=== PATIENT | male | born 1955 | race Caucasian/White ===

== ENCOUNTER → 2018-08-06 | Outpatient (CLI) | payer OTHER ==
[2018-08-06 16:33] LABS: ABG BASE EXCESS 3.3 MMOL/L (-2.5-2.5); ABG OXYGEN SATURATION 96 % (94-100); ABG PCO2 41 MMHG (35-45); ABG PH 7.43 (7.37-7.43); ABG PO2 68 MMHG (79-93); ABG TCO2 28.7 MMOL/L (21.0-31.0)
[2018-08-06 16:34] LABS: ALLENS TEST YES-POS; INSPIRED O2 RA; PATIENT TEMP 97.8; VENTILATOR NO
== END ==
LOC: RT 16:03
PROVIDERS: ATTEND Nurse Practitioner Family
DX: Z02.89 Encounter for other administrative examinations (principal); J44.9 Chronic obstructive pulmonary disease, unspecified
CPT/HCPCS: 36600; 82805

== ENCOUNTER 2021-04-16 16:03 | Emergency (ER) | payer MEDICARE, MEDICAID ==
[~2021-04-16] VITALS: Ht 182.8 cm; Wt 72.7 kg
--- NOTE | 2021-04-16 17:05 | ED General ---
General Chief Complaint: General Problems/Pain Stated Complaint: HX COPD/BILAT LEG SWELLING Nursing Triage Note: AMB TO ROOM FROM [facility].PMH OF COPD PATIENT WEARING 02 AT 3 L PER NC . PATIENT REPORTS THAT WAS IN [facility] IN [place]. HAS BEEN WITH LASIX FOR X1 DAY AND LEG HAVE BEEN SWOLLEN FOR 2 DAYS SENT BY [facility] FOR EVAL. Source of Information: Patient Exam Limitations: No Limitations (CLARISSE QUINONEZ STUDENT) History of Present Illness Date Seen by Provider: Apr 16, 2021 Time Seen by Provider: 16:26 Initial Comments This is [place] a 66 yo male that presented to the ED via private vehicle after being referred from [facility]. He was at a follow-up appointment when he told to consult with cardiology due to "fluid build-up". He has a history of COPD. Pt states he has SOB that is his baseline. He complains of bilateral pitting edema making it difficult to walk. He had a hospital stay at [place] in January for possible DVT/PE and was prescribed new medications for COPD, blood thinner, and Lasiks. He has been out of the Lasiks for about 2 weeks now and states that he was unable to get more prescribed. Pt is on constant supplemental O2 of 3L and was currently at 98%. The Pt denies having a coater operator or ever having an ECHO. His last imaging was at [place] during his stay. Timing/Duration: Constant, Other (2 weeks) Severity: Mild Modifying Factors: improves with Medication; worse with Movement Associated Systoms: Shortness of Air (CLARISSE QUINONEZ STUDENT) Review of Systems Review of Systems Constitutional: no symptoms reported EENTM: no symptoms reported Respiratory: see HPI, short of breath Cardiovascular: see HPI, edema Gastrointestinal: no symptoms reported Genitourinary: no symptoms reported Musculoskeletal: no symptoms reported Skin: see HPI, change in color, dryness, other (bilateral pitting edema) Psychiatric/Neurological: No Symptoms Reported Hematologic/Lymphatic: No Symptoms Reported Immunological/Allergic: no symptoms reported (CLARISSE QUINONEZ STUDENT) Past Jkbmugb-Kbsgdt-Iqtqpl Hx Patient Social History Tobacco Use?: Yes Smoking Status: Former Smoker Substance use?: No Alcohol Use?: Yes Alcohol Frequency: Several times a month (CLARISSE QUINONEZ STUDENT) Past Medical History Respiratory: Yes Pulmonary Embolism, COPD Deep Vein Thrombosis (CLARISSE QUINONEZ STUDENT) Physical Exam Vital Signs Vital Signs - First Documented 04/16/21 16:22 Temp 36.8 Pulse 100 Resp 18 B/P (MAP) 126/90 (102) Pulse Ox 93 O2 Delivery Nasal Cannula (JANET SIGALA MD) Vital Signs Capillary Refill : Less Than 3 Seconds (CLARISSE QUINONEZ MED STUDENT) Height, Weight, BMI Height: '" Weight: lbs. oz. kg; 21.00 BMI Method: General Appearance: No Apparent Distress, WD/WN Eyes: Bilateral Eye Normal Inspection, Bilateral Eye PERRL HEENT: PERRL/EOMI Neck: Normal Inspection, Non Tender, Supple Respiratory: Chest Non Tender, No Accessory Muscle Use, No Respiratory Distress, Crackles, Decreased Breath Sounds Cardiovascular: Regular Rate, Rhythm, No Gallop, No Murmur, Normal Peripheral Pulses Gastrointestinal: Normal Bowel Sounds, Non Tender, Soft Rectal: Deferred Extremity: Non Tender, No Calf Tenderness, Pedal Edema, Swelling Neurologic/Psychiatric: Alert, Oriented x3, No Motor/Sensory Deficits, Normal Mood/Affect Skin: Normal Color, Warm/Dry (CLARISSE QUINONEZ STUDENT) Focused Exam Respiratory: Chest Non Tender, No Accessory Muscle Use, No Respiratory Distress, Crackles, Decreased Breath Sounds Cardiovascular: Regular Rate, Rhythm, No Gallop, No Murmur, Normal Peripheral Pulses Skin: normal color, warm/dry (CLARISSE QUINONEZ STUDENT) Progress/Results/Core Measures Suspected Sepsis SIRS Temperature: Pulse: 100 Respiratory Rate: 18 Blood Pressure 126 /90 Mean: 102 (CLARISSE QUINONEZ STUDENT) Results/Orders Lab Results Laboratory Tests Test 04/16/21 17:32 Range/Units White Blood Count 6.9 4.3-11.0 10^3/uL Red Blood Count 4.28 L 4.30-5.52 10^6/uL Hemoglobin 13.7 13.3-17.7 g/dL Hematocrit 43 40-54 % Mean Corpuscular Volume 100 H 80-99 fL Mean Corpuscular Hemoglobin 32 25-34 pg Mean Corpuscular Hemoglobin Concent 32 32-36 g/dL Red Cell Distribution Width 15.3 H 10.0-14.5 % Platelet Count 181 130-400 10^3/uL Mean Platelet Volume 11.6 9.0-12.2 fL Immature Granulocyte % (Auto) 0 % Neutrophils (%) (Auto) 65 42-75 % Lymphocytes (%) (Auto) 19 12-44 % Monocytes (%) (Auto) 14 H 0-12 % Eosinophils (%) (Auto) 1 0-10 % Basophils (%) (Auto) 1 0-10 % Neutrophils # (Auto) 4.5 1.8-7.8 10^3/uL Lymphocytes # (Auto) 1.3 1.0-4.0 10^3/uL Monocytes # (Auto) 1.0 0.0-1.0 10^3/uL Eosinophils # (Auto) 0.1 0.0-0.3 10^3/uL Basophils # (Auto) 0.1 0.0-0.1 10^3/uL Immature Granulocyte # (Auto) 0.0 0.0-0.1 10^3/uL Sodium Level 137 135-145 MMOL/L Potassium Level 4.7 3.6-5.0 MMOL/L Chloride Level 101 98-107 MMOL/L Carbon Dioxide Level 28 21-32 MMOL/L Anion Gap 8 5-14 MMOL/L Blood Urea Nitrogen 12 7-18 MG/DL Creatinine 1.00 0.60-1.30 MG/DL Estimat Glomerular Filtration Rate 75 BUN/Creatinine Ratio 12 Glucose Level 96 70-105 MG/DL Calcium Level 9.5 8.5-10.1 MG/DL B-Type Natriuretic Peptide 1246.9 H <100.0 PG/ML (JANET SIGALA MD) My Orders Orders - JANET SIGALA MD Basic Metabolic Panel (04/16/21 17:01) BNP (04/16/21 17:01) Cbc With Automated Diff (04/16/21 17:01) Ed Iv/Invasive Line Start (04/16/21 17:01) Chest 1 View, Ap/Pa Only (04/16/21 17:01) (JANET SIGALA MD) Vital Signs/I&O 04/16/21 16:22 Temp 36.8 Pulse 100 Resp 18 B/P (MAP) 126/90 (102) Pulse Ox 93 O2 Delivery Nasal Cannula (JANET SIGALA MD) Vital Signs/I&O Capillary Refill : Less Than 3 Seconds (CLARISSE QUINONEZ MED STUDENT) Blood Pressure Mean: 102 Departure Impression Primary Impression: Lower extremity edema Additional Impressions: Hypertension Qualified Codes: I10 - Essential (primary) hypertension Fluid overload Qualified Codes: E87.70 - Fluid overload, unspecified Disposition: 01 HOME, SELF-CARE Condition: Stable Departure-Patient Inst. Decision time for Depature: 18:31 (JANET SIGALA MD) Referrals: [facility] [place] Primary Care Physician PEGGY GIORDANO JR, MD Patient Instructions: Heart Failure ED, High Blood Pressure in Adults Add. Discharge Instructions: Call Dr. Giordano office as soon as possible to schedule a follow-up appointment. See contact information below Contact [facility] to request a transfer records to Dr. Giordano Start your medications as prescribed. After starting these 3 medications, you should have your blood work checked again in 1 to 2 weeks. Please do this with either Dr. Giordano or your primary care provider. Avoid excessive or extra salt in your diet. Call with questions or concerns. Return to the ER if you have worsening symptoms. All discharge instructions reviewed with patient and/or family. Voiced understanding. Scripts Potassium Chloride (Potassium Chloride) 10 Meq Capsule.er 10 MEQ PO DAILY, #30 CAP Prov: JANET SIGALA MD 04/16/21 Lisinopril (Lisinopril) 5 Mg Tablet 5 MG PO DAILY, #30 TAB Prov: JANET SIGALA MD 04/16/21 Furosemide (Furosemide) 20 Mg Tablet 20 MG PO DAILY, #30 TAB Prov: JANET SIGALA MD 04/16/21 Copy Copies To 1: JANY MORATAYA DO Copies To 2: PEGGY GIORDANO JR, MD [place], DYLAN MED STUDENT Apr 16, 2021 17:05 JANET SIGALA MD Apr 16, 2021 18:36
[2021-04-16 17:39] LABS: BASOPHILS # (AUTO) 0.1 10^3/uL (0.0-0.1); BASOPHILS % (AUTO) 1 % (0-10); EOSINOPHILS # (AUTO) 0.1 10^3/uL (0.0-0.3); EOSINOPHILS % (AUTO) 1 % (0-10); HEMATOCRIT 43 % (40-54); HEMOGLOBIN 13.7 g/dL (13.3-17.7); LYMPHOCYTES # (AUTO) 1.3 10^3/uL (1.0-4.0); LYMPHOCYTES % (AUTO) 19 % (12-44); MEAN CORPUSCULAR HEMOGLOBIN 32 pg (25-34); MEAN CORPUSCULAR HGB CONC 32 g/dL (32-36); MEAN CORPUSCULAR VOLUME 100 fL (80-99); MEAN PLATELET VOLUME 11.6 fL (9.0-12.2); MONOCYTES % (AUTO) 14 % (0-12); NEUTROPHILS # (AUTO) 4.5 10^3/uL (1.8-7.8); NEUTROPHILS % (AUTO) 65 % (42-75); PLATELET COUNT 181 10^3/uL (130-400); WHITE BLOOD COUNT 6.9 10^3/uL (4.3-11.0)
[2021-04-16 17:49] LABS: POTASSIUM 4.7 MMOL/L (3.6-5.0)
[2021-04-16 17:50] LABS: CALCIUM 9.5 MG/DL (8.5-10.1)
--- NOTE | 2021-04-16 18:00 | Diagnostic Imaging Report ---
EXAMINATION: Chest radiograph, portable AP view. DATE: 04/16/2021 5:36 PM INDICATION: 66-year-old male, shortness of breath. COMPARISON: None. FINDINGS: Heart size and mediastinal contours are unremarkable. There is no identified pneumothorax. There is blunting of the right lateral costophrenic angle. There is no otherwise identified focal airspace consolidation. IMPRESSION: 1. Blunting of the right lateral costophrenic angle which may reflect small effusion, atelectasis, and/or infiltrate. Dictated by: Dictated on workstation # [id number]
[2021-04-16] MEDS ORDERED: LISI-729 PO (18:35)
[2021-04-16] MEDS ORDERED: FURO20TA4 PO (18:35)
[2021-04-16] MEDS ORDERED: POTA10CA43 PO (18:35)
[2021-04-16 18:48] VITALS: BP 163/103
== END 2021-04-16 18:51 | disposition home or self-care (01) ==
LOC: EDUNIT# 16:03 → ER 16:05
DX: R60.0 Localized edema (principal); I10 Essential (primary) hypertension; E87.70 Fluid overload, unspecified; J44.9 Chronic obstructive pulmonary disease, unspecified; Z87.891 Personal history of nicotine dependence
CPT/HCPCS: 36415; 71045; 80048; 83880; 85025

== ENCOUNTER → 2021-05-21 | Outpatient (CLI) | payer MEDICARE, MEDICAID ==
[~2021-05-21] MED LIST: FURO20TA4 PO; LISI5TAB20 PO; POTA10CA43 PO
== END ==
LOC: CARD 13:00
PROVIDERS: ATTEND Internal Medicine Cardiovascular Disease
DX: I08.1 Rheumatic disorders of both mitral and tricuspid valves (principal); I27.20 Pulmonary hypertension, unspecified
CPT/HCPCS: 93306

== ENCOUNTER 2022-08-05 16:09 | Inpatient (IN) | payer MEDICARE, MEDICAID ==
[~2022-08-05] VITALS: Ht 180 cm; Wt 69.8 kg
[~2022-08-05 16:09] MED LIST changes: -POTA10CA43 PO; +POTA10CA44 PO
[2022-08-05] MEDS ORDERED: LISI5TAB20 PO (16:27)
[2022-08-05] MEDS ORDERED: ATOR20TA66 PO (16:27)
--- NOTE | 2022-08-05 16:31 | ED Respiratory ---
General Chief Complaint: Respiratory Problems Stated Complaint: SOB Nursing Triage Note: PT STATES SOB FOR ABOUT 2 WKS, HAS NOT BEEN ON HIS LASIX FOR ABOUT THE SAME TIME, OTHER MEDS HE HAS ACCIDENTALLY BEEN TAKING DOUBLE THE DOSE Source: patient, old records Exam Limitations: no limitations History of Present Illness Date Seen by Provider: Aug 05, 2022 Time Seen by Provider: 16:13 Initial Comments 67yoM with PMH of chronic hypoxic respiratory failure on anywhere between 3 to 5 L oxygen at home, COPD, hypertension, hyperlipidemia, questionable CHF coming in due to shortness of breath and increasing edema in his lower extremities going up past his abdomen. He states he was started on Lasix, it was not refilled, and he has had increasing water weight over the past month. He has never followed up with a director internal audit. The Lasix was prescribed in the emergency department initially. He is otherwise denying any fever, worsening cough, abdominal pain, nausea, vomiting, focal weakness or numbness, or any other concerns Allergies and Home Medications Allergies Coded Allergies: No Known Drug Allergies (Unverified , 08/05/22) Patient Home Medication List Home Medication List Reviewed: Yes Atorvastatin Calcium (Atorvastatin Calcium) 20 Mg Tablet, 20 MG PO, (Reported) Entered as Reported by: BOB OJEDA on 08/05/221626 Last Action: New Order Furosemide (Furosemide) 20 Mg Tablet, 20 MG PO DAILY Prescribed by: JANET COY on 04/16/211834 Lisinopril (Lisinopril) 5 Mg Tablet, 5 MG PO DAILY Prescribed by: JANET COY on 04/16/211834 Lisinopril (Lisinopril) 5 Mg Tablet, 5 MG PO DAILY, (Reported) Entered as Reported by: BOB OJEDA on 08/05/221626 Last Action: New Order Potassium Chloride (Potassium Chloride) 10 Meq Capsule.er, 10 MEQ PO DAILY Prescribed by: JANET COY on 04/16/211834 Review of Systems Review of Systems Constitutional: No fever EENTM: no symptoms reported Respiratory: see HPI Cardiovascular: chest pain (when walking long distances, better with rest) Gastrointestinal: no symptoms reported Genitourinary: no symptoms reported Musculoskeletal: see HPI Skin: no symptoms reported Psychiatric/Neurological: No Symptoms Reported Hematologic/Lymphatic: No Symptoms Reported Immunological/Allergic: no symptoms reported All Other Systems Reviewed Negative Unless Noted: Yes Past Clftvqv-Utubmc-Mxtaph Hx Patient Social History Tobacco Use?: Yes Tobacco type used: Cigarettes Past Medical History Surgeries: No Respiratory: Yes Pulmonary Embolism, COPD Deep Vein Thrombosis Physical Exam Vital Signs - First Documented 08/05/22 16:12 Temp 35.9 Pulse 114 Resp 24 B/P (MAP) 121/62 (81) Pulse Ox 98 O2 Delivery OxyMask O2 Flow Rate 10.00 Capillary Refill : Height: '" Weight: lbs. oz. kg; 20.00 BMI Method: General Appearance: WD/WN, mild distress Eyes: Bilateral Eye Normal Inspection HEENT: PERRL/EOMI, normal ENT inspection, pharynx normal Neck: non-tender, full range of motion, supple, normal inspection Respiratory: chest non-tender, accessory muscle use, crackles Cardiovascular: regular rate, rhythm, no murmur Gastrointestinal: normal bowel sounds, non tender, soft; No distended, No guarding, No rebound Extremities: normal range of motion, non-tender, no calf tenderness, normal capillary refill, pedal edema Neurologic/Psychiatric: no motor/sensory deficits, alert, normal mood/affect Skin: normal color, warm/dry Lymphatic: no adenopathy Progress/Results/Core Measures Suspected Sepsis SIRS Temperature: Pulse: 114 Respiratory Rate: 24 Laboratory Tests 08/05/22 16:25: White Blood Count 7.7 Blood Pressure 121 /62 Mean: 81 Laboratory Tests 08/05/22 16:25: Creatinine 1.16, INR Comment 1.1, Platelet Count 142, Total Bilirubin 0.9 Results/Orders Lab Results Laboratory Tests Test 08/05/22 16:25 Range/Units White Blood Count 7.7 4.3-11.0 10^3/uL Red Blood Count 4.75 4.30-5.52 10^6/uL Hemoglobin 14.8 13.3-17.7 g/dL Hematocrit 46 40-54 % Mean Corpuscular Volume 98 80-99 fL Mean Corpuscular Hemoglobin 31 25-34 pg Mean Corpuscular Hemoglobin Concent 32 32-36 g/dL Red Cell Distribution Width 15.0 H 10.0-14.5 % Platelet Count 142 130-400 10^3/uL Mean Platelet Volume 12.4 H 9.0-12.2 fL Immature Granulocyte % (Auto) 0 % Neutrophils (%) (Auto) 67 42-75 % Lymphocytes (%) (Auto) 18 12-44 % Monocytes (%) (Auto) 14 H 0-12 % Eosinophils (%) (Auto) 1 0-10 % Basophils (%) (Auto) 1 0-10 % Neutrophils # (Auto) 5.1 1.8-7.8 10^3/uL Lymphocytes # (Auto) 1.4 1.0-4.0 10^3/uL Monocytes # (Auto) 1.1 H 0.0-1.0 10^3/uL Eosinophils # (Auto) 0.1 0.0-0.3 10^3/uL Basophils # (Auto) 0.1 0.0-0.1 10^3/uL Immature Granulocyte # (Auto) 0.0 0.0-0.1 10^3/uL Prothrombin Time 14.8 H 12.2-14.7 SEC INR Comment 1.1 0.8-1.4 Activated Partial Thromboplast Time 29 24-35 SEC Sodium Level 138 135-145 MMOL/L Potassium Level 4.6 3.6-5.0 MMOL/L Chloride Level 100 98-107 MMOL/L Carbon Dioxide Level 28 21-32 MMOL/L Anion Gap 10 5-14 MMOL/L Blood Urea Nitrogen 28 H 7-18 MG/DL Creatinine 1.16 0.60-1.30 MG/DL Estimat Glomerular Filtration Rate 69 BUN/Creatinine Ratio 24 Glucose Level 86 70-105 MG/DL Calcium Level 9.7 8.5-10.1 MG/DL Corrected Calcium 9.9 8.5-10.1 MG/DL Magnesium Level 1.7 1.6-2.4 MG/DL Total Bilirubin 0.9 0.1-1.0 MG/DL Aspartate Amino Transf (AST/SGOT) 47 H 5-34 U/L Alanine Aminotransferase (ALT/SGPT) 34 0-55 U/L Alkaline Phosphatase 211 H 40-136 U/L Troponin I 0.057 H <0.028 NG/ML B-Type Natriuretic Peptide 2716.3 H <100.0 PG/ML Total Protein 7.1 6.4-8.2 GM/DL Albumin 3.8 3.2-4.5 GM/DL Lipase 50 8-78 U/L My Orders Orders - YOVANY HYATT MD Cbc With Automated Diff (08/05/22 16:33) Magnesium (08/05/22 16:33) Chest 1 View, Ap/Pa Only (08/05/22 16:33) Ekg Tracing (08/05/22 16:33) Comprehensive Metabolic Panel (08/05/22 16:33) Protime With Inr (08/05/22 16:33) Partial Thromboplastin Time (08/05/22 16:33) O2 (08/05/22 16:33) Monitor-Rhythm Ecg Trace Only (08/05/22 16:33) Ed Iv/Invasive Line Start (08/05/22 16:33) Lipase (08/05/22 16:33) Bnp Hall (08/05/22 16:33) Troponin I Hall (08/05/22 16:33) Aspirin Chewable Tablet (Baby Aspirin Ch (08/05/22 16:45) Albuterol/Ipra Inhalation Soln (Duoneb I (08/05/22 16:45) Furosemide Injection (Lasix Injection) (08/05/22 16:45) Medications Given in ED Current Medications Medications Dose Ordered Sig/Kirby Route Start Time Stop Time Status Last Admin Dose Admin Albuterol/ Ipratropium 3 ml ONCE ONCE INH 08/05/22 16:45 08/05/22 16:46 DC 08/05/22 16:42 3 ML Aspirin 324 mg ONCE ONCE PO 08/05/22 16:45 08/05/22 16:46 DC 08/05/22 16:50 324 MG Furosemide 40 mg ONCE ONCE IVP 08/05/22 16:45 08/05/22 16:46 DC 08/05/22 16:50 40 MG Vital Signs/I&O 08/05/22 08/05/22 08/05/22 08/05/22 16:12 16:15 16:15 16:45 Temp 35.9 Pulse 114 Resp 24 B/P (MAP) 121/62 (81) Pulse Ox 98 96 100 O2 Delivery OxyMask Nasal Cannula Nasal Cannula OxyMask O2 Flow Rate 10.00 4.00 4.00 12.00 Capillary Refill : Blood Pressure Mean: 81 Progress Note : Progress Note 67-year-old male with above history coming in shortness of breath and chest pain. ABCs were intact and vitals were stable on presentation on his baseline oxygen. He is breathing hard with lung sounds with crackles. Given a DuoNeb given his history of COPD to see if that can help with his work of breathing. Significant edema and with the crackles, patient was given IV Lasix 40 mg. Troponin slightly elevated which is a type II NSTEMI in the setting of his heart failure. He was given aspirin. BNP elevated, chest x-ray with cardiomegaly but no obvious infiltrate on my interpretation. I will contact the director internal audit for consultation and then I will contact Dr. Sawant for admission to the cardiac stepdown unit. ECG Initial ECG Impression Date: Aug 05, 2022 Initial ECG Impression Time: 16:51 Initial ECG Rate: 99 Initial ECG Rhythm: Normal Sinus Comment Narrow QRS, borderline right axis deviation, subtle ST depression in the inferior leads but no STEMI Diagnostic Imaging Diagonstic Imaging: Xray (chest) Comments NAME: CHINTAN [facility]BERTS [facility] REC#: [id number] PT STATUS: REG ER : 1955 PHYSICIAN: YOVANY HYATT MD ADMIT DATE: 08/05/22/ER Draft Date of Exam:08/05/22 CHEST 1 VIEW, AP/PA ONLY INDICATION: Chest pain. TECHNIQUE/COMPARISON: A frontal chest was obtained at 4:35 PM and compared to 04/16/2021. FINDINGS: There is cardiomegaly. There is central vascular congestion. There is hyperinflation, compatible with COPD, with biapical bullous disease. There is no consolidation, pneumothorax, or pleural fluid. IMPRESSION: Cardiomegaly and central vascular congestion without brandon edema. COPD changes with biapical bullous disease without focal infiltrate. Dictated on workstation # [id number] Dict: 08/05/22 1651 Trans: 08/05/22 1654 [id number] Interpreted by: CHINTAN BASS MD Electronically signed by: Departure Impression Primary Impression: CHF exacerbation Qualified Codes: I50.9 - Heart failure, unspecified Additional Impressions: Chronic respiratory failure Qualified Codes: J96.11 - Chronic respiratory failure with hypoxia NSTEMI (non-ST elevated myocardial infarction) Disposition: ADMITTED INPATIENT Condition: Stable Admissions Decision to Admit Reason: Admit from ER (General) Decision to Admit/Date: Aug 05, 2022 Time/Decision to Admit Time: 17:15 Departure-Patient Inst. Referrals: [facility] [place] Primary Care Physician YOVANY HYATT MD Aug 05, 2022 16:31
[2022-08-05] MEDS ORDERED: RT-ALBUTEROL/IPRATROPIUM 3 ML (DUONEB) VIAL INH ONE (16:45)
[2022-08-05] MEDS ORDERED: FUROSEMIDE 40 MG/4 ML INJ (LASIX) IVP ONE (16:45)
[2022-08-05] MEDS ORDERED: ASPIRIN 81 MG CHEW (CHILDREN'S ASA) PO ONE (16:45)
[2022-08-05 16:49] LABS: BASOPHILS # (AUTO) 0.1 10^3/uL (0.0-0.1); BASOPHILS % (AUTO) 1 % (0-10); EOSINOPHILS # (AUTO) 0.1 10^3/uL (0.0-0.3); EOSINOPHILS % (AUTO) 1 % (0-10); HEMATOCRIT 46 % (40-54); HEMOGLOBIN 14.8 g/dL (13.3-17.7); LYMPHOCYTES # (AUTO) 1.4 10^3/uL (1.0-4.0); LYMPHOCYTES % (AUTO) 18 % (12-44); MEAN CORPUSCULAR HEMOGLOBIN 31 pg (25-34); MEAN CORPUSCULAR HGB CONC 32 g/dL (32-36); MEAN CORPUSCULAR VOLUME 98 fL (80-99); MEAN PLATELET VOLUME 12.4 fL (9.0-12.2); MONOCYTES # (AUTO) 1.1 10^3/uL (0.0-1.0); MONOCYTES % (AUTO) 14 % (0-12); NEUTROPHILS # (AUTO) 5.1 10^3/uL (1.8-7.8); NEUTROPHILS % (AUTO) 67 % (42-75); PLATELET COUNT 142 10^3/uL (130-400); WHITE BLOOD COUNT 7.7 10^3/uL (4.3-11.0)
[2022-08-05 16:50] LABS: ALBUMIN 3.8 GM/DL (3.2-4.5)
[2022-08-05 16:51] LABS: POTASSIUM 4.6 MMOL/L (3.6-5.0)
[2022-08-05 16:52] LABS: CALCIUM 9.7 MG/DL (8.5-10.1)
[2022-08-05 16:53] LABS: TOTAL PROTEIN 7.1 GM/DL (6.4-8.2)
[2022-08-05 16:55] LABS: BILIRUBIN,TOTAL 0.9 MG/DL (0.1-1.0)
--- NOTE | 2022-08-05 16:55 | Diagnostic Imaging Report ---
INDICATION: Chest pain. TECHNIQUE/COMPARISON: A frontal chest was obtained at 4:35 PM and compared to 04/16/2021. FINDINGS: There is cardiomegaly. There is central vascular congestion. There is hyperinflation, compatible with COPD, with biapical bullous disease. There is no consolidation, pneumothorax, or pleural fluid. IMPRESSION: Cardiomegaly and central vascular congestion without brandon edema. COPD changes with biapical bullous disease without focal infiltrate. Dictated by: Dictated on workstation # [id number]
[2022-08-05 16:57] LABS: CREATININE SERUM 1.16 MG/DL (0.60-1.30)
[2022-08-05 16:59] LABS: INR 1.1 (0.8-1.4); MAGNESIUM 1.7 MG/DL (1.6-2.4); PROTHROMBIN TIME PATIENT 14.8 SEC (12.2-14.7)
[2022-08-05] MEDS ORDERED: ANTACID SUSP 30 ML UDC (MYLANTA) PO PRN (19:00)
[2022-08-05] MEDS ORDERED: polyethylene glycoL POWDER 17 GM (MIRALAX) PACK PO PRN (19:00)
[2022-08-05] MEDS ORDERED: diphenhydrAMINE 25 MG TAB (BENADRYL) PO PRN (19:00)
[2022-08-05] MEDS ORDERED: HYDROmorphone 2 MG/ML VIAL (DILAUDID) IV PRN (19:00)
[2022-08-05] MEDS ORDERED: BISACODYL 10 MG SUPP (DULCOLAX) PR PRN (19:00)
[2022-08-05] MEDS ORDERED: MILK OF MAGNESIA 400 MG/5 ML 30 ML UDC PO PRN (19:00)
[2022-08-05] MEDS ORDERED: LORazepam 0.5 MG (ATIVAN) TABLET PO PRN (19:00)
[2022-08-05] MEDS ORDERED: ACETAMINOPHEN 325 MG TABLET PO PRN (19:00)
[2022-08-05] MEDS ORDERED: LACTULOSE SYRUP 10GM/15ML (ENULOSE) 30ML UDC PO PRN (19:00)
[2022-08-05] MEDS ORDERED: LORazepam INJ 2 MG/ML (ATIVAN) VIAL IVP PRN (19:00)
[2022-08-05] MEDS ORDERED: diphenhydrAMINE 50 MG/ML INJ (BENADRYL) IVP PRN (19:00)
[2022-08-05] MEDS ORDERED: MELATONIN 3 MG TABLET PO PRN (19:00)
[2022-08-05] MEDS ORDERED: ONDANSETRON 4 MG/2 ML (SDV) Z0FRAN IV PRN (19:00)
[2022-08-05] MEDS ORDERED: ONDANSETRON 4 MG (ZOFRAN) ORAL DISSOLVE TAB PO PRN (19:00)
--- NOTE | 2022-08-05 19:33 | Cardiology History & Physical ---
HPI-Cardiology Cardiology Consultation Date of Consultation 08/05/22 Date of Admission Time Seen by Provider: 07:15 [facility] Mr. Herrera is a 67-year-old gentleman with history of hypertension hyperlipidemia COPD and CHF who presents for evaluation of shortness of breath and lower extremity edema. Patient states that he was recently in the hospital for evaluation of shortness of breath. He was seen in the emergency room and released. He was given Lasix at that time. He states that he ran out of his Lasix approximately 1 month ago. In the interim he is noticed increasing lower extremity edema increasing shortness of breath increasing abdominal girth and decided to come in for evaluation. He also notes some associated chest heaviness and pressure. This occurs in the setting of his increased lower extremity edema and abdominal girth. Upon presentation he was found to have an elevated BNP and troponin. Cardiology is now consulted to aid in evaluation. PMH-Cardiology Surgeries No Respiratory Yes Other PMHx Hypertension, hyperlipidemia COPD CHF Social History Patient Social History Smoking: Current every day smoker (1 to 2 packs/day x 52 years) Substance type: Marijuana Have you traveled recently?: No Alcohol Use?: Yes (1-2 beers 2 times per week.) Family Hx Other Reviewed and noncontributory ROS-Cardiology Review of Systems All systems were reviewed and are negative except for what is been described in [facility] Home Medications & Allergies Allergies: Coded Allergies: No Known Drug Allergies (Unverified , 08/05/22) Lisinopril 5 mg p.o. daily Atorvastatin 20 mg p.o. nightly Symbicort Lasix Exam-Cardiology Vital Signs Vital Signs Date Time Temp Pulse Resp B/P (MAP) Pulse Ox O2 Delivery O2 Flow Rate FiO2 08/05/22 18:29 36.4 94 18 117/92 98 OxyMask 5.00 Exam General Appearance: Alert, Oriented X3 HEENT: Atraumatic Respiratory: Other (Diminished air movement in the bilateral lung pritchard. Decreased breath sounds in bilateral bases. Occasional rales were noted.) Cardiovascular: Regular Rate, Normal S1, Normal S2, No Murmurs Abdominal: Normal Bowel Sounds Extremities: No Clubbing, No Cyanosis, Other (2+ pitting edema to the knees.) Skin: No Rashes, No Breakdown, No Significant Lesion Neuro: Normal Gait, Normal Speech Psych/Mental Status: Mental Status NL Results Labs Labs Laboratory Tests 08/05/22 16:25: White Blood Count 7.7, Red Blood Count 4.75, Hemoglobin 14.8, Hematocrit 46, Mean Corpuscular Volume 98, Mean Corpuscular Hemoglobin 31, Mean Corpuscular Hemoglobin Concent 32, Red Cell Distribution Width 15.0H, Platelet Count 142, Mean Platelet Volume 12.4H, Immature Granulocyte % (Auto) 0, Neutrophils (%) (Auto) 67, Lymphocytes (%) (Auto) 18, Monocytes (%) (Auto) 14H, Eosinophils (%) (Auto) 1, Basophils (%) (Auto) 1, Neutrophils # (Auto) 5.1, Lymphocytes # (Auto) 1.4, Monocytes # (Auto) 1.1H, Eosinophils # (Auto) 0.1, Basophils # (Auto) 0.1, Immature Granulocyte # (Auto) 0.0, Prothrombin Time 14.8H, INR Comment 1.1, Activated Partial Thromboplast Time 29, Sodium Level 138, Potassium Level 4.6, Chloride Level 100, Carbon Dioxide Level 28, Anion Gap 10, Blood Urea Nitrogen 28H, Creatinine 1.16, Estimat Glomerular Filtration Rate 69, BUN/Creatinine Ratio 24, Glucose Level 86, Calcium Level 9.7, Corrected Calcium 9.9, Magnesium Level 1.7, Total Bilirubin 0.9, Aspartate Amino Transf (AST/SGOT) 47H, Alanine Aminotransferase (ALT/SGPT) 34, Alkaline Phosphatase 211H, Troponin I 0.057H, B- Type Natriuretic Peptide 2716.3H, Total Protein 7.1, Albumin 3.8, Lipase 50 A/P-Cardiology Admission Diagnosis Admission Status: Inpatient Order (span 2 midnights) Reason for Inpatient Admission: Patient will require IV diuresis Assessment/Plan Mr. Herrera is a 67-year-old gentleman with history of hypertension hyperlipidemia COPD and CHF who presents for evaluation of shortness of breath and lower extremity edema. ##Congestive heart failure: Patient presents with increasing lower extremity edema abdominal girth and PND type symptoms consistent with CHF. Patient has never been worked up by a grain farmer. Patient is been off of his Lasix for 1 month. - Start Lasix 40 mg IV twice daily Continue lisinopril 5 mg p.o. daily Keep K greater than 4/mag greater than 2 Obtain echocardiogram to assess overall cardiac structure and function Further medical recommendations to be advanced post diagnostic studies ##Hypertension: Blood pressures stable at 120/62. - we will simply continue to monitor for now continue with lisinopril 5. - Low threshold to uptitrate antihypertensives as needed ##COPD: Breath sounds diminished in the bilateral lung pritchard. Not sure if there is an active component of COPD. - Will defer to primary hospitalist in this regard. ##NSTEMI: Unclear etiology. Could be secondary to CHF type symptoms. We will trend troponins. Further recommendations to be advanced depending on troponin profile as well as echo results. CINTHYA CRUZ MD Aug 05, 2022 19:33
[2022-08-05] MEDS: FUROSEMIDE 40 MG/4 ML INJ (LASIX) IV SCH (19:54)
[2022-08-05] MEDS: ENOXAPARIN 40 MG/0.4 ML (LOVENOX) SYR SC SCH (19:55)
[2022-08-05 20:00] VITALS: BP 119/93
[2022-08-05] MEDS ORDERED: RT-ALBUTEROL SULF 2.5 MG/3 ML PRE-MIX VIAL INH PRN (20:15)
[2022-08-05] MEDS ORDERED: RT-IPRATROPIUM (ATROVENT) 0.5MG/2.5ML AMP IH PRN (20:15)
[2022-08-05] MEDS: MONTELUKAST 10 MG (SINGULAIR) TAB PO SCH (20:57)
[2022-08-05] MEDS: SENNOSIDES 8.6 MG (SENOKOT) TAB PO SCH (21:00)
[2022-08-05] MEDS: DOCUSATE SODIUM 100 MG (COLACE) CAP PO SCH (21:00)
[2022-08-05] MEDS ORDERED: RT-ALBUTEROL/IPRATROPIUM 3 ML (DUONEB) VIAL INH SCH (22:00)
[2022-08-05] MEDS: RT-ALBUTEROL SULF 2.5 MG/3 ML PRE-MIX VIAL INH SCH (22:16)
[2022-08-05] MEDS: RT-IPRATROPIUM (ATROVENT) 0.5MG/2.5ML AMP IH SCH (22:17)
[2022-08-06 02:00] VITALS: BP 112/80
[2022-08-06] MEDS: RT-ALBUTEROL SULF 2.5 MG/3 ML PRE-MIX VIAL INH SCH ×6 (02:30→21:20)
[2022-08-06] MEDS: RT-IPRATROPIUM (ATROVENT) 0.5MG/2.5ML AMP IH SCH ×6 (02:31→21:20)
[2022-08-06 04:28] VITALS: BP 95/66
[2022-08-06 06:07] LABS: BASOPHILS # (AUTO) 0.1 10^3/uL (0.0-0.1); BASOPHILS % (AUTO) 1 % (0-10); EOSINOPHILS # (AUTO) 0.1 10^3/uL (0.0-0.3); EOSINOPHILS % (AUTO) 1 % (0-10); HEMATOCRIT 41 % (40-54); HEMOGLOBIN 13.5 g/dL (13.3-17.7); LYMPHOCYTES # (AUTO) 1.3 10^3/uL (1.0-4.0); LYMPHOCYTES % (AUTO) 19 % (12-44); MEAN CORPUSCULAR HEMOGLOBIN 32 pg (25-34); MEAN CORPUSCULAR HGB CONC 33 g/dL (32-36); MEAN CORPUSCULAR VOLUME 97 fL (80-99); MONOCYTES # (AUTO) 1.1 10^3/uL (0.0-1.0); MONOCYTES % (AUTO) 17 % (0-12); NEUTROPHILS # (AUTO) 4.2 10^3/uL (1.8-7.8); NEUTROPHILS % (AUTO) 62 % (42-75); PLATELET COUNT 135 10^3/uL (130-400); WHITE BLOOD COUNT 6.8 10^3/uL (4.3-11.0)
[2022-08-06] MEDS: methylPREDNISolone 40 MG/ML (Solu-MEDROL) VIAL IV SCH ×5 (06:21→23:49)
[2022-08-06 06:25] LABS: ALBUMIN 3.2 GM/DL (3.2-4.5); BILIRUBIN,TOTAL 0.7 MG/DL (0.1-1.0); CALCIUM 9.3 MG/DL (8.5-10.1); CREATININE SERUM 1.25 MG/DL (0.60-1.30); POTASSIUM 4.3 MMOL/L (3.6-5.0); TOTAL PROTEIN 6.1 GM/DL (6.4-8.2)
[2022-08-06 06:26] LABS: CHOLESTEROL 122 MG/DL (< 200); HDL CHOLESTEROL 47 MG/DL (40-60); TRIGLYCERIDES 80 MG/DL (<150); VLDL CHOLESTEROL 16 MG/DL (5-40)
[2022-08-06 07:51] VITALS: BP 127/88
[2022-08-06] MEDS: FUROSEMIDE 40 MG/4 ML INJ (LASIX) IV SCH ×2 (08:24→17:46)
[2022-08-06] MEDS: NICOTINE PATCH REMOVAL TP SCH (08:25)
[2022-08-06] MEDS: SENNOSIDES 8.6 MG (SENOKOT) TAB PO SCH ×2 (08:28→21:40)
[2022-08-06] MEDS: DOCUSATE SODIUM 100 MG (COLACE) CAP PO SCH ×2 (08:28→21:40)
[2022-08-06] MEDS: ASPIRIN 81 MG CHEW (CHILDREN'S ASA) PO SCH (08:28)
[2022-08-06] MEDS: NICOTINE 21 MG (NICODERM) PATCH TD SCH (08:29)
[2022-08-06] MEDS ORDERED: lisINopril 10 MG (PRINIVIL) TABLET PO SCH ×2 (09:00)
[2022-08-06] MEDS ORDERED: lisINopril 5 MG (PRINIVIL) TABLET PO SCH (09:00)
[2022-08-06] MEDS ORDERED: UMEC62.5 IH (11:21)
[2022-08-06] MEDS ORDERED: BUDE10.22 IH (11:21)
--- NOTE | 2022-08-06 11:25 | Progress Note - Cardiology ---
Cardiology SOAP Progress Note Subjective: Sitting up in bed States his SOB is better, but not back to baseline He denies any c/o CP, palpitations, syncope or near syncope No c/o LE swelling Objective: I&O/Vital Signs 08/07/22 08/07/22 08/07/22 08/07/22 00:00 00:00 01:00 01:31 Temp 36.2 Pulse 108 108 Resp 22 B/P (MAP) 149/96 (113) Pulse Ox 97 92 O2 Delivery OxyMask OxyMask OxyMask O2 Flow Rate 5.00 5.00 5.00 08/07/22 08/07/22 08/07/22 08/07/22 04:00 07:00 08:00 08:00 Temp 36.1 Pulse 107 107 105 Resp 22 B/P (MAP) 141/92 (108) 140/95 (110) Pulse Ox 96 94 98 O2 Delivery OxyMask OxyMask OxyMask O2 Flow Rate 5.00 5.00 8.00 08/07/22 10:18 Pulse Ox 95 O2 Delivery OxyMask O2 Flow Rate 9.00 08/07/22 00:00 Intake Total 1575 ml Output Total 3325 ml Balance -1750 ml Constitutional: AAO x 3, well-developed, other (thin, frail) Respiratory: No accessory muscle use, No respiratory distress; chest expansion is symmetric, chest is bilaterally symmetric, rhonchi (scattered ), other (coarse) Cardiovascular: regular rate-rhythm; No JVD Gastrointestional: soft, audible bowel sounds Extremities: no lower extremity edema bilateral Neurologic/Psychiatric: grossly intact (moves all textremities) Skin: No rash on exposed areas, No ulcerations on exposed areas Results/Procedures: Labs Laboratory Tests 08/07/22 05:44: White Blood Count 9.3, Red Blood Count 4.61, Hemoglobin 14.3, Hematocrit 44, Mean Corpuscular Volume 96, Mean Corpuscular Hemoglobin 31, Mean Corpuscular Hemoglobin Concent 32, Red Cell Distribution Width 14.7H, Platelet Count 152, Mean Platelet Volume 11.9, Immature Granulocyte % (Auto) 0, Neutrophils (%) (Auto) 89H, Lymphocytes (%) (Auto) 4L, Monocytes (%) (Auto) 7, Eosinophils (%) (Auto) 0, Basophils (%) (Auto) 0, Neutrophils # (Auto) 8.3H, Lymphocytes # (Auto) 0.4L, Monocytes # (Auto) 0.6, Eosinophils # (Auto) 0.0, Basophils # (Auto) 0.0, Immature Granulocyte # (Auto) 0.0, Neutrophils % (Manual) 88, Lymphocytes % (Manual) 4, Monocytes % (Manual) 7, Band Neutrophils 1, Blood Morphology Comment NORMAL, Sodium Level 140, Potassium Level 4.0, Chloride Level 95L, Carbon Dioxide Level 34H, Anion Gap 11, Blood Urea Nitrogen 32H, Creatinine 1.16, Estimat Glomerular Filtration Rate 69, BUN/Creatinine Ratio 28, Glucose Level 140H, Calcium Level 9.6, Corrected Calcium 10.0, Total Bilirubin 0.8, Aspartate Amino Transf (AST/SGOT) 36H, Alanine Aminotransferase (ALT/SGPT) 26, Alkaline Phosphatase 198H, Total Protein 6.6, Albumin 3.5 Procedures NAME: CHINTAN [facility] REC#: [id number] PT STATUS: REG ER : 1955 PHYSICIAN: YOVANY HYATT MD ADMIT DATE: 08/05/22/ER Signed Date of Exam:08/05/22 CHEST 1 VIEW, AP/PA ONLY INDICATION: Chest pain. TECHNIQUE/COMPARISON: A frontal chest was obtained at 4:35 PM and compared to 04/16/2021. FINDINGS: There is cardiomegaly. There is central vascular congestion. There is hyperinflation, compatible with COPD, with biapical bullous disease. There is no consolidation, pneumothorax, or pleural fluid. IMPRESSION: Cardiomegaly and central vascular congestion without brandon edema. COPD changes with biapical bullous disease without focal infiltrate. Dictated by: Dictated on workstation # [id number] Dict: 08/05/22 1651 Trans: 08/05/22 1717 [id number] Interpreted by: CHINTAN BASS MD Electronically signed by: CHINTAN BASS MD 08/05/22 1717 A/P: Assessment: NSTEMI vs Type 2 MS secondary to hypoxia and acute CHF Acute on chonric diastolic congestive heart failure - reports he has been on Lasix, but has been without it for the last month - ECHOCARDIOGRAM (05/21/2021) by Dr. Giordano: There is normal left jugular chamber size with moderate septal hypertrophy. Normal left ventricular systolic function with an estimated ejection fraction of 60-65% with flattening of the intraventricular septum consistent with right ventricular pressure and/or volume overload. Doppler parameters are consistent with grade 1 diastolic dysfunction. The right ventricle is mildly dilated with normal function. TAPSE 1.7 cm. The right atrium is moderately dilated measuring 23 cm.The intra-atrial septum is bowed to the left consistent with elevated right atrial pressure. There is mild mitral regurgitation. There is moderate tricuspid regurgitation. The aortic root is mildly dilated at 3.9 cm. The estimated pulmonary artery systolic pressure is 81 mmHg assuming a right atrial pressure of 5 mmHg. Pulmonary HTN - PASP 81 on echo of 05-21-[address] Giordano Hypertension - controlled Acute on chronic exacerbation of COPD - management per medical services Plan: Acute on chronic diastolic CHF - had been out of Lasix for a month - continue to treat with diuretics - echocardiogram today NSTEMI vs Type 2 MS secondary to hypoxia and CHF Monitor lab closely Replace electrolytes We have reviewed Dr. Ramirez's notes ASUNCION OLSON Aug 06, 2022 11:25
[2022-08-06 11:43] VITALS: BP 110/78
--- NOTE | 2022-08-06 15:09 | History & Physical-Hospitalist ---
KATYA SANDOVAL 08/06/22 1509: History of Present Illness HPI/Chief Complaint Chintan Herrera (Mike) is a 67M with a past medical history of COPD, HTN, and HLD who presented to the ED on 08/05 with complaints of leg swelling, increased abdominal girth, and shortness of breath. This issue with swelling of his legs and shortness of breath has been ongoing for several years. He was put on lasix about one year ago after a stay at [facility]. He took his lasix as prescribed up until early June. After this point he did not refill the med. His swelling and shortness of breath have worsened since this time. He reports orthopnea and has to rest with an elevated head of the bed. His shortness of breath and leg swelling is made worse by walking. He reports he "cannot walk across the room without getting winded". He denies any chest pain but reports a fell/pressure sensation. He is on 3L by oxymask at my visit and says he requires anywhere from 3 to 5 liters at home. He has seen Dr. Giordano in the past but does not follow with a volcanology professor regularly. Source: patient Exam Limitations: no limitations Date Seen 08/06/22 Attending Physician [facility] PCP Admitting Physician: Carli Cano DO Attending Physician: Carli Cano DO Referring Physician Date of Admission Aug 05, 2022 at 17:54 Home Medications & Allergies Home Medications Reviewed patient Home Medication Reconciliation performed by pharmacy medication reconciliations school bus technician and/or nursing. Patients Allergies have been reviewed. Allergies Allergies Coded Allergies No Known Drug Allergies (Unverified08/05/22) Past Bncjfcd-Fvvogh-Tdrwae Hx Patient Social History Tobacco Use?: Yes (roughly 50 pack year history) Tobacco type used: Cigarettes Smoking Status: Current Everyday Smoker Smokeless Tobacco Frequency: Former User Substance use?: Yes Substance type: Marijuana Substance frequency: Rarely Alcohol Use?: Yes (1-2 beers 2 times per week.) Alcohol Frequency: Rarely Pt feels they are or have been: No Current Status Advance Directives: Yes Advance Directive Location: Home Communicates: Verbally Primary Language: [place] Preferred Spoken Language: [place] Is interpretation needed?: No Sensory deficits: Vision impairment Implanted or Applied Medical D: None Past Medical History Pulmonary Embolism, COPD Chronic Edema/Swelling, Deep Vein Thrombosis, High Cholesterol, Hypertension Family Medical History Heart Disease (grandfather), Diabetes (Mother and siblings) Review of Systems Constitutional: No chills, No fever Respiratory: No cough; dyspnea on exertion, orthopnea, short of breath Cardiovascular: No chest pain; edema Gastrointestinal: No abdominal pain, No constipation Genitourinary: No decreased output, No dysuria Skin: change in color (erythema of both feet) Psychiatric/Neurological: Denies Headache, Denies Weakness Physical Exam Physical Exam Vital Signs Vital Signs - First Documented 08/05/22 16:12 Temp 35.9 Pulse 114 Resp 24 B/P (MAP) 121/62 (81) Pulse Ox 98 O2 Delivery OxyMask O2 Flow Rate 10.00 Capillary Refill : Height, Weight, BMI Height: '" Weight: lbs. oz. kg; 20.27 BMI Method: General Appearance: No Apparent Distress (on 3L by oxymask), WD/WN HEENT: PERRL/EOMI, Moist Mucous Membranes Neck: Supple Respiratory: Chest Non Tender, No Accessory Muscle Use, Wheezing (scattered) Cardiovascular: No Murmur, Tachycardia Gastrointestinal: Non Tender, Distended (mild) Rectal: Deferred Extremity: Normal Capillary Refill, Pedal Edema (w erythema), Other (posterior tibial pulse difficult to palpate bilaterally due to swelling) Neurologic/Psychiatric: Alert, Oriented x3, Normal Mood/Affect; No Disoriented Skin: Erythema (both feet) Results Results/Procedures Labs Laboratory Tests 08/05/22 16:25 08/06/22 05:53 Patient resulted labs reviewed. Imaging NAME: CHINTAN [facility] REC#: [id number] PT STATUS: REG ER : 1955 PHYSICIAN: YOVANY HYATT MD ADMIT DATE: 08/05/22/ER Signed Date of Exam:08/05/22 CHEST 1 VIEW, AP/PA ONLY INDICATION: Chest pain. TECHNIQUE/COMPARISON: A frontal chest was obtained at 4:35 PM and compared to 04/16/2021. FINDINGS: There is cardiomegaly. There is central vascular congestion. There is hyperinflation, compatible with COPD, with biapical bullous disease. There is no consolidation, pneumothorax, or pleural fluid. IMPRESSION: Cardiomegaly and central vascular congestion without brandon edema. COPD changes with biapical bullous disease without focal infiltrate. Dictated by: Dictated on workstation # [id number] Dict: 08/05/22 1651 Trans: 08/05/221716 [id number] Interpreted by: CHINTAN BASS MD Electronically signed by: CHINTAN BASS MD 08/05/22 1717 Assessment/Plan Assessment and Plan CHF exacerbation BNP significantly elevated. Lasix 40 BID. Cardiology consulted. Echocardiogram today. Last echo in showed grade 1 diastolic dysfunction. ACEI and BB started. Monitor vitals and electrolytes closely. Fluid and salt restriction HTN 127/88 this AM. Meds noted above have been started, continue to monitor COPD Continue montelukast and nebulized treatments. O2 sats have been good on same oxygen requirement the patient uses at home. CXR showed chronic COPD changes with no evidence of pna or effusion. NSTEMI or Type 2 NM Troponins were elevated. Unsure if this is due to acute ischemia or fluid overload. Aspirin given. Cardiology consulted and further recommendation will follow echo results. Nicotine Dependence Nicoderm patch in place DVT prophylaxis w lovenox CARLI CANO DO 08/07/22 0518: History of Present Illness Source: patient Exam Limitations: no limitations Time Seen by a Provider: 10:00 Past Wwgtkmh-Vkakrz-Jttjuk Hx Patient Social History Marrital Status: single Employed/Student: retired Review of Systems Respiratory: dyspnea on exertion Physical Exam Physical Exam General Appearance: No Apparent Distress, Anxious, Chronically ill Respiratory: Decreased Breath Sounds, Wheezing (scattered) Cardiovascular: Regular Rate, Rhythm Assessment/Plan Admission Diagnosis Assessment: AECHF NSTEMI Smoker Acute on chronic acute respiratory failure AECOPD Plan: Monitor closely O2 IV steroids IV Lasix Cardiology Admission Status: Observation Supervisory-Addendum Brief Verification & Attestation Participated in pt care: history, MDM, physical Personally performed: exam, history, MDM, supervision of care Care discussed with: Medical Student Procedures: n/a Results interpretation: Verified all documentation Verification and Attestation of Medical Student E/M Service A medical student performed and documented this service in my presence. I reviewed and verified all information documented by the medical student and made modifications to such information, when appropriate. I personally performed the physical exam and medical decision making. Carli Cano, Aug 07, 2022,05:18 KATYA SANDOVAL Aug 06, 2022 15:09 CARLI CANO DO Aug 07, 2022 05:18
[2022-08-06 16:33] VITALS: BP 145/91
[2022-08-06] MEDS: ENOXAPARIN 40 MG/0.4 ML (LOVENOX) SYR SC SCH (17:46)
--- NOTE | 2022-08-06 19:34 | Progress Note - Cardiology ---
Cardiology SOAP Progress Note Subjective: No cp or palp or syncope Shortness of breath is improving No n/v/d No focal weakness Gen weakness present Objective: I&O/Vital Signs 08/06/22 08/06/22 08/06/22 08/06/22 07:51 08:00 11:10 11:15 Temp 36.6 Pulse 106 Resp 20 B/P (MAP) 127/88 (101) Pulse Ox 94 94 94 O2 Delivery Nasal Cannula OxyMask OxyMask OxyMask O2 Flow Rate 3.00 3.00 3.00 3.00 08/06/22 08/06/22 08/06/22 08/06/22 11:43 12:37 15:07 15:14 Temp 36.2 Pulse 121 123 Resp 19 B/P (MAP) 110/78 (89) Pulse Ox 94 95 95 O2 Delivery Nasal Cannula OxyMask OxyMask O2 Flow Rate 3.00 3.00 3.00 08/06/22 08/06/22 16:33 18:54 Temp 36.0 Pulse 107 Resp 28 B/P (MAP) 145/91 (109) Pulse Ox 98 94 O2 Delivery Nasal Cannula OxyMask O2 Flow Rate 3.00 3.00 08/05/22 23:59 Intake Total 400 ml Output Total 1900 ml Balance -1500 ml Constitutional: AAO x 3, well-developed, other (thin, frail) Respiratory: No accessory muscle use, No respiratory distress; chest expansion is symmetric, chest is bilaterally symmetric, rhonchi (scattered ), other (coarse) Cardiovascular: regular rate-rhythm; No JVD Gastrointestional: soft, audible bowel sounds Extremities: no lower extremity edema bilateral Neurologic/Psychiatric: other (moves all limbs equally) Skin: No rash on exposed areas, No ulcerations on exposed areas Results/Procedures: Labs Laboratory Tests 08/06/22 05:53: White Blood Count 6.8, Red Blood Count 4.29L, Hemoglobin 13.5, Hematocrit 41, Mean Corpuscular Volume 97, Mean Corpuscular Hemoglobin 32, Mean Corpuscular Hemoglobin Concent 33, Red Cell Distribution Width 14.8H, Platelet Count 135, Mean Platelet Volume 12.0, Immature Granulocyte % (Auto) 0, Neutrophils (%) (Auto) 62, Lymphocytes (%) (Auto) 19, Monocytes (%) (Auto) 17H, Eosinophils (%) (Auto) 1, Basophils (%) (Auto) 1, Neutrophils # (Auto) 4.2, Lymphocytes # (Auto) 1.3, Monocytes # (Auto) 1.1H, Eosinophils # (Auto) 0.1, Basophils # (Auto) 0.1, Immature Granulocyte # (Auto) 0.0, Sodium Level 140, Potassium Level 4.3, Chloride Level 100, Carbon Dioxide Level 31, Anion Gap 9, Blood Urea Nitrogen 31H, Creatinine 1.25, Estimat Glomerular Filtration Rate 64, BUN/Creatinine Ratio 25, Glucose Level 118H, Calcium Level 9.3, Corrected Calcium 9.9, Total Bilirubin 0.7, Aspartate Amino Transf (AST/SGOT) 40H, Alanine Aminotransferase (ALT/SGPT) 24, Alkaline Phosphatase 175H, Troponin I 0.076H, Total Protein 6.1L, Albumin 3.2, Triglycerides Level 80, Cholesterol Level 122, LDL Cholesterol Direct 59, VLDL Cholesterol 16, HDL Cholesterol 47 Laboratory Tests 08/05/22 16:25 08/06/22 05:53 A/P: Assessment: Mild troponin elevation: likely Type 2 [place] secondary to hypoxia and acute CHF Acute on chonric diastolic congestive heart failure - reports he has been on Lasix, but has been without it for the last month - Echo (05/21/2021) by Dr. Giordano: There is normal left ventricular chamber size with moderate septal hypertrophy. Normal left ventricular systolic function with an estimated ejection fraction of 60-65% with flattening of the intraventricular septum consistent with right ventricular pressure and/or volume overload. Doppler parameters are consistent with grade 1 diastolic dysfunction. The right ventricle is mildly dilated with normal function. TAPSE 1.7 cm. The right atrium is moderately dilated measuring 23 cm.The intra-atrial septum is bowed to the left consistent with elevated right atrial pressure. There is mild mitral regurgitation. There is moderate tricuspid regurgitation. The aortic root is mildly dilated at 3.9 cm. The estimated pulmonary artery systolic pressure is 81 mmHg assuming a right atrial pressure of 5 mmHg. - Echo on 08/07/22: Left ventricle: Moderate concentric hypertrophy. Systolic function is normal. The estimated ejection fraction is 60-65%. There were no regional wall motion abnormalities identified. Grade 2 diastolic dysfunction. RV cavity size is severely increased. Wall thickness is normal. There is right ventricular pressure and volume overload. Right atrium is severely dilated. Mild MR. Severe TR. PASP is in the range of 115 mm Hg to 120 mm Hg Severe, chronic, cor pulmonale and pulmonary HTN - RV pressure and vol overload and PASP 81 on echo of 05-21-[address] Giordano - RV pressure and vol overload and PASP 115-120 mmHg on ech of 08-06-22 Hypertension - controlled Acute on chronic exacerbation of COPD - management per medical services Plan: Complex management due to multiple comorbidities Acute on chronic diastolic CHF - had been out of Lasix for a month - continue to treat with diuretics Would need pulm consult for severe Pulm htn DVT prophylaxis Monitor lab closely Replace electrolytes I reviewed his chart and interviewed and examined the patient BIRD ANDREWS MD FACP FAC CCDS Aug 06, 2022 19:34
[2022-08-06 19:53] VITALS: BP 143/96
[2022-08-06] MEDS: MONTELUKAST 10 MG (SINGULAIR) TAB PO SCH (21:16)
[2022-08-07] VITALS (7 sets, daily range): BP systolic 128–149; BP diastolic 92–99
[2022-08-07] MEDS: RT-ALBUTEROL SULF 2.5 MG/3 ML PRE-MIX VIAL INH SCH ×6 (01:31→22:59)
[2022-08-07] MEDS: RT-IPRATROPIUM (ATROVENT) 0.5MG/2.5ML AMP IH SCH ×6 (01:31→22:59)
[2022-08-07 06:00] LABS: BASOPHILS % (AUTO) 0 % (0-10); EOSINOPHILS % (AUTO) 0 % (0-10); HEMATOCRIT 44 % (40-54); HEMOGLOBIN 14.3 g/dL (13.3-17.7); LYMPHOCYTES # (AUTO) 0.4 10^3/uL (1.0-4.0); LYMPHOCYTES % (AUTO) 4 % (12-44); MEAN CORPUSCULAR HEMOGLOBIN 31 pg (25-34); MEAN CORPUSCULAR HGB CONC 32 g/dL (32-36); MEAN CORPUSCULAR VOLUME 96 fL (80-99); MEAN PLATELET VOLUME 11.9 fL (9.0-12.2); MONOCYTES # (AUTO) 0.6 10^3/uL (0.0-1.0); MONOCYTES % (AUTO) 7 % (0-12); NEUTROPHILS # (AUTO) 8.3 10^3/uL (1.8-7.8); NEUTROPHILS % (AUTO) 89 % (42-75); PLATELET COUNT 152 10^3/uL (130-400); WHITE BLOOD COUNT 9.3 10^3/uL (4.3-11.0)
[2022-08-07 06:16] LABS: ALBUMIN 3.5 GM/DL (3.2-4.5)
[2022-08-07 06:18] LABS: CALCIUM 9.6 MG/DL (8.5-10.1)
[2022-08-07 06:19] LABS: TOTAL PROTEIN 6.6 GM/DL (6.4-8.2)
[2022-08-07 06:21] LABS: BILIRUBIN,TOTAL 0.8 MG/DL (0.1-1.0)
[2022-08-07 06:23] LABS: BAND NEUTROPHILS 1 %; CREATININE SERUM 1.16 MG/DL (0.60-1.30); LYMPHOCYTES % (MANUAL) 4 %; MONOCYTES % (MANUAL) 7 %; NEUTROPHILS % (MANUAL) 88 %; RBC MORPH NORMAL
[2022-08-07] MEDS: methylPREDNISolone 40 MG/ML (Solu-MEDROL) VIAL IV SCH ×4 (06:40→23:31)
[2022-08-07] MEDS: FUROSEMIDE 40 MG/4 ML INJ (LASIX) IV SCH ×2 (07:52→17:00)
[2022-08-07] MEDS: NICOTINE 21 MG (NICODERM) PATCH TD SCH (07:52)
[2022-08-07] MEDS: NICOTINE PATCH REMOVAL TP SCH (07:53)
[2022-08-07] MEDS: ASPIRIN 81 MG CHEW (CHILDREN'S ASA) PO SCH (07:53)
[2022-08-07] MEDS: SENNOSIDES 8.6 MG (SENOKOT) TAB PO SCH ×2 (07:53→21:25)
[2022-08-07] MEDS: DOCUSATE SODIUM 100 MG (COLACE) CAP PO SCH ×2 (07:53→21:25)
[2022-08-07] MEDS: CALCIUM CARBONATE 500 MG (TUMS) TAB.CHEW PO PRN ×2 (09:02→16:59)
--- NOTE | 2022-08-07 11:22 | Progress Note - Cardiology ---
Cardiology SOAP Progress Note Subjective: Sitting up in bed Feels breathing is better, but not yet at baseline No c/o CP or palpitations Objective: I&O/Vital Signs Constitutional: AAO x 3, well-developed, other (thin, frail) Respiratory: No accessory muscle use, No respiratory distress; chest expansion is symmetric, chest is bilaterally symmetric, rhonchi (scattered ), other (coarse) Cardiovascular: regular rate-rhythm; No JVD Gastrointestional: soft, audible bowel sounds Extremities: no lower extremity edema bilateral Neurologic/Psychiatric: other (moves all limbs equally) Skin: No rash on exposed areas, No ulcerations on exposed areas Results/Procedures: Labs A/P: Assessment: Mild troponin elevation: likely Type 2 [place] secondary to hypoxia and acute CHF Acute on chonric diastolic congestive heart failure - reports he has been on Lasix, but has been without it for the last month - Echo (05/21/2021) by Dr. iGordano: There is normal left ventricular chamber si ze with moderate septal hypertrophy. Normal left ventricular systolic function with an estimated ejection fraction of 60-65% with flattening of the intraventricular septum consistent with right ventricular pressure and/or volume overload. Doppler parameters are consistent with grade 1 diastolic dysfunction. The right ventricle is mildly dilated with normal function. TAPSE 1.7 cm. The right atrium is moderately dilated measuring 23 cm.The intra-atrial septum is bowed to the left consistent with elevated right atrial pressure. There is mild mitral regurgitation. There is moderate tricuspid regurgitation. The aortic root is mildly dilated at 3.9 cm. The estimated pulmonary artery systolic pressure is 81 mmHg assuming a right atrial pressure of 5 mmHg. - Echo on 08/07/22: Left ventricle: Moderate concentric hypertrophy. Systolic function is normal. The estimated ejection fraction is 60-65%. There were no regional wall motion abnormalities identified. Grade 2 diastolic dysfunction. RV cavity size is severely increased. Wall thickness is normal. There is right ventricular pressure and volume overload. Right atrium is severely dilated. Mild MR. Severe TR. PASP is in the range of 115 mm Hg to 120 mm Hg Severe, chronic, cor pulmonale and pulmonary HTN - RV pressure and vol overload and PASP 81 on echo of 05-21-[address] Giordano - RV pressure and vol overload and PASP 115-120 mmHg on ech of 2-8-23 Hypertension - controlled Acute on chronic exacerbation of COPD - management per medical services Plan: Complex management due to multiple comorbidities Acute on chronic diastolic CHF - continue to treat with diuretics Would need pulm consult for severe Pulm htn DVT prophylaxis Monitor lab closely Replace electrolytes Discussed plan of care with ASUNCION Patel Aug 07, 2022 11:22
--- NOTE | 2022-08-07 12:22 | Progress Note - Hospitalist ---
KATYA SANDOVAL 08/07/22 1222: Subjective HPI/CC On Admission Denver Herrera (Mike) is a 67M with a past medical history of COPD, HTN, and HLD who presented to the ED on 08/05 with complaints of leg swelling, increased abdominal girth, and shortness of breath. This issue with swelling of his legs and shortness of breath has been ongoing for several years. He was put on lasix about one year ago after a stay at [facility]. He took his lasix as prescribed up until early June. After this point he did not refill the med. His swelling and shortness of breath have worsened since this time. He reports orthopnea and has to rest with an elevated head of the bed. His shortness of breath and leg swelling is made worse by walking. He reports he "cannot walk across the room without getting winded". He denies any chest pain but reports a fell/pressure sensation. He is on 3L by oxymask at my visit and says he requires anywhere from 3 to 5 liters at home. He has seen Dr. Giordano in the past but does not follow with a reworker regularly. Subjective/Events-last exam Denver Herrera (Mike) is a 67M admitted for acute exacerbation of CHF and COPD. Today he is seen at bedside resting comfortably with oxymask in place. He rep orts feeling much better than yesterday in regards to his shortness of breath and lower extremity swelling. He has not ambulated much last night or this morning. He denies a cough, fever, or chills. He does not have any chest pain or palpitations. When asked about how his echo went yesterday he says he "thinks it went well" but was not sure about the results of the study. He did not have any acute issues overnight. Review of Systems General: No Chills, No Night Sweats HEENT: No Head Aches Pulmonary: Dyspnea (improved); No Cough Cardiovascular: Orthopnea, Edema; No: Chest Pain, Palpitations Gastrointestinal: No: Nausea, Abdominal Pain Genitourinary: No Dysuria Neurological: No: Confusion Objective Exam Vital Signs Vital Signs Date Time Temp Pulse Resp B/P (MAP) Pulse Ox O2 Delivery O2 Flow Rate FiO2 08/07/22 10:18 95 OxyMask 9.00 08/07/22 08:00 105 22 140/95 (110) 08/07/22 04:00 36.1 Capillary Refill : General Appearance: No Apparent Distress (oxymask in place), WD/WN HEENT: PERRL/EOMI, Moist Mucous Membranes Respiratory: Chest Non Tender, No Accessory Muscle Use, Crackles (bilateral bases, improved from yesterday) Cardiovascular: Normal Peripheral Pulses, Tachycardia Gastrointestinal: Non Tender, Soft Rectal: Deferred Extremity: Non Tender, Pedal Edema (1+. better than yesterday), Swelling Neurologic/Psychiatric: Alert, Oriented x3, Normal Mood/Affect Skin: Erythema (bilateral feet, about the same as yesterday) Results/Procedures Lab Laboratory Tests 08/07/22 05:44 Patient resulted labs reviewed. Radiology Echo on 08/07/22: Left ventricle: Moderate concentric hypertrophy. Systolic function is normal. The estimated ejection fraction is 60-65%. There were no regional wall motion abnormalities identified. Grade 2 diastolic dysfunction. RV cavity size is severely increased. Wall thickness is normal. There is right ventricular pressure and volume overload. Right atrium is severely dilated. Mild MR. Severe TR. PASP is in the range of 115 mm Hg to 120 mm Hg Assessment/Plan Assessment and Plan Assess & Plan/Chief Complaint CHF exacerbation BNP significantly elevated. Lasix 40 BID. Cardiology consulted. Ec hocardiogram results ->Left ventricle: Moderate concentric hypertrophy. Systolic function is normal. The estimated ejection fraction is 60-65%. There were no regional wall motion abnormalities identified. Grade 2 diastolic dysfunction. RV cavity size is severely increased. Wall thickness is normal. There is right ventricular pressure and volume overload. Right atrium is severely dilated. Mild MR. Severe TR. PASP is in the range of 115 mm Hg to 120 mm Hg . Last echo in showed grade 1 diastolic dysfunction. ACEI and BB. Monitor vitals and electrolytes closely. Fluid and salt restriction Severe pulmonary HTN Echo showed pasp of 115-120. Will need evaluation by pulmonology after D/C. Can consider endothelin receptor antagonist or PDE5 inhibitor. HTN 141/92 this AM. Meds noted above have been started, continue to monitor COPD Continue montelukast and nebulized treatments. O2 sats have been good on same oxygen requirement the patient uses at home. CXR showed chronic COPD changes with no evidence of pna or effusion. Elevated troponins Troponins were .057 and .076 . Likely due to volume overload and CHF exacerbation. Aspirin given. Cardiology consulted, no cath or further procedures at this time. Nicotine Dependence Nicoderm patch in place DVT prophylaxis w lovenox CARLI CANO DO 08/08/22 0512: Subjective HPI/CC On Admission Date Seen by Provider: Aug 07, 2022 Time Seen by Provider: 11:00 Review of Systems General: Fatigue, Malaise Objective Exam General Appearance: No Apparent Distress, WD/WN, Chronically ill Respiratory: Crackles (bilateral bases, improved from yesterday) Cardiovascular: Tachycardia Neurologic/Psychiatric: Alert, Oriented x3 Supervisory-Addendum Brief Verification & Attestation Participated in pt care: history, MDM, physical Personally performed: exam, history, MDM, supervision of care Care discussed with: Medical Student Procedures: n/a Results interpretation: Verified all documentation Verification and Attestation of Medical Student E/M Service A medical student performed and documented this service in my presence. I reviewed and verified all information documented by the medical student and made modifications to such information, when appropriate. I personally performed the physical exam and medical decision making. Carli Cano, Aug 08, 2022,05:10 KATYA SANDOVAL Aug 07, 2022 12:22 CARLI CANO DO Aug 08, 2022 05:12
--- NOTE | 2022-08-07 17:02 | Progress Note - Cardiology ---
Cardiology SOAP Progress Note Subjective: No cp or palp or syncope Improving shortness of breath No n/v/d No focal weakness Gen weakness present Objective: I&O/Vital Signs 08/07/22 08/07/22 08/07/22 08/07/22 07:00 08:00 08:00 10:18 Pulse 107 105 Resp 22 B/P (MAP) 140/95 (110) Pulse Ox 94 98 95 O2 Delivery OxyMask OxyMask OxyMask O2 Flow Rate 7.00 8.00 9.00 08/07/22 08/07/22 08/07/22 08/07/22 12:00 12:46 13:57 16:00 Temp 36.6 Pulse 101 105 104 Resp 13 22 B/P (MAP) 134/95 (108) 128/94 (105) Pulse Ox 90 95 91 O2 Delivery OxyMask OxyMask OxyMask O2 Flow Rate 7.00 7.00 7.00 08/07/22 00:00 Intake Total 1575 ml Output Total 3325 ml Balance -1750 ml Constitutional: AAO x 3, well-developed, other (thin, frail) Respiratory: No accessory muscle use, No respiratory distress; chest expansion is symmetric, chest is bilaterally symmetric, rhonchi (scattered ), other (coarse) Cardiovascular: regular rate-rhythm; No JVD Gastrointestional: soft, audible bowel sounds Extremities: no lower extremity edema bilateral Neurologic/Psychiatric: other (moves all limbs equally) Skin: No rash on exposed areas, No ulcerations on exposed areas Results/Procedures: Labs Laboratory Tests 08/07/22 05:44: White Blood Count 9.3, Red Blood Count 4.61, Hemoglobin 14.3, Hematocrit 44, Mean Corpuscular Volume 96, Mean Corpuscular Hemoglobin 31, Mean Corpuscular Hemoglobin Concent 32, Red Cell Distribution Width 14.7H, Platelet Count 152, Mean Platelet Volume 11.9, Immature Granulocyte % (Auto) 0, Neutrophils (%) (Auto) 89H, Lymphocytes (%) (Auto) 4L, Monocytes (%) (Auto) 7, Eosinophils (%) (Auto) 0, Basophils (%) (Auto) 0, Neutrophils # (Auto) 8.3H, Lymphocytes # (Auto) 0.4L, Monocytes # (Auto) 0.6, Eosinophils # (Auto) 0.0, Basophils # (Auto) 0.0, Immature Granulocyte # (Auto) 0.0, Neutrophils % (Manual) 88, Lymphocytes % (Manual) 4, Monocytes % (Manual) 7, Band Neutrophils 1, Blood Morphology Comment NORMAL, Sodium Level 140, Potassium Level 4.0, Chloride Level 95L, Carbon Dioxide Level 34H, Anion Gap 11, Blood Urea Nitrogen 32H, Creatinine 1.16, Estimat Glomerular Filtration Rate 69, BUN/Creatinine Ratio 28, Glucose Level 140H, Calcium Level 9.6, Corrected Calcium 10.0, Total Bilirubin 0.8, Aspartate Amino Transf (AST/SGOT) 36H, Alanine Aminotransferase (ALT/SGPT) 26, Alkaline Phosphatase 198H, Total Protein 6.6, Albumin 3.5 Laboratory Tests 08/06/22 05:53 08/07/22 05:44 A/P: Assessment: Mild troponin elevation: likely Type 2 MA secondary to hypoxia and acute CHF Acute on chonric diastolic congestive heart failure - reports he has been on Lasix, but has been without it for the last month - Echo (05/21/2021) by Dr. Giordano: There is normal left ventricular chamber size with moderate septal hypertrophy. Normal left ventricular systolic function with an estimated ejection fraction of 60-65% with flattening of the intraventricular septum consistent with right ventricular pressure and/or volume overload. Doppler parameters are consistent with grade 1 diastolic dysfunction. The right ventricle is mildly dilated with normal function. TAPSE 1.7 cm. The right atrium is moderately dilated measuring 23 cm.The intra-atrial septum is bowed to the left consistent with elevated right atrial pressure. There is mild mitral regurgitation. There is moderate tricuspid regurgitation. The aortic root is mildly dilated at 3.9 cm. The estimated pulmonary artery systolic pressure is 81 mmHg assuming a right atrial pressure of 5 mmHg. - Echo on 08/07/22: Left ventricle: Moderate concentric hypertrophy. Systolic function is normal. The estimated ejection fraction is 60-65%. There were no regional wall motion abnormalities identified. Grade 2 diastolic dysfunction. RV cavity size is severely increased. Wall thickness is normal. There is right ventricular pressure and volume overload. Right atrium is severely dilated. Mild MR. Severe TR. PASP is in the range of 115 mm Hg to 120 mm Hg Severe, chronic, cor pulmonale and pulmonary HTN - RV pressure and vol overload and PASP 81 on echo of 05-21-[address] Giordano - RV pressure and vol overload and PASP 115-120 mmHg on ech of 08-06-22 Hypertension - controlled Acute on chronic exacerbation of COPD - management per medical services Plan: * Complex management due to multiple comorbidities * Continue diuretics * Monitor labs * I had a long and detailed discussion with him and explained to him his echo findings * We advise close f/u with pcp and we recommend a pulm consult * He understands all of the above. Questions answered BIRD ANDREWS MD FACP FAC CCDS Aug 07, 2022 17:02
[2022-08-07] MEDS: ENOXAPARIN 40 MG/0.4 ML (LOVENOX) SYR SC SCH (18:18)
[2022-08-07] MEDS: MONTELUKAST 10 MG (SINGULAIR) TAB PO SCH (21:17)
[2022-08-08] MEDS: CALCIUM CARBONATE 500 MG (TUMS) TAB.CHEW PO PRN (01:36)
[2022-08-08] MEDS: RT-ALBUTEROL SULF 2.5 MG/3 ML PRE-MIX VIAL INH SCH ×6 (02:15→23:30)
[2022-08-08] MEDS: RT-IPRATROPIUM (ATROVENT) 0.5MG/2.5ML AMP IH SCH ×6 (02:16→23:30)
[2022-08-08 04:00] VITALS: BP 134/91
[2022-08-08 05:01] LABS: BASOPHILS % (AUTO) 0 % (0-10); EOSINOPHILS % (AUTO) 0 % (0-10); HEMATOCRIT 44 % (40-54); HEMOGLOBIN 14.3 g/dL (13.3-17.7); LYMPHOCYTES # (AUTO) 0.5 10^3/uL (1.0-4.0); LYMPHOCYTES % (AUTO) 4 % (12-44); MEAN CORPUSCULAR HEMOGLOBIN 31 pg (25-34); MEAN CORPUSCULAR HGB CONC 32 g/dL (32-36); MEAN CORPUSCULAR VOLUME 96 fL (80-99); MONOCYTES # (AUTO) 1.2 10^3/uL (0.0-1.0); MONOCYTES % (AUTO) 10 % (0-12); NEUTROPHILS # (AUTO) 11.2 10^3/uL (1.8-7.8); NEUTROPHILS % (AUTO) 86 % (42-75); PLATELET COUNT 161 10^3/uL (130-400)
[2022-08-08 05:29] LABS: ALBUMIN 3.2 GM/DL (3.2-4.5); BILIRUBIN,TOTAL 0.5 MG/DL (0.1-1.0); CALCIUM 9.4 MG/DL (8.5-10.1); CREATININE SERUM 1.14 MG/DL (0.60-1.30); POTASSIUM 3.9 MMOL/L (3.6-5.0); TOTAL PROTEIN 6.3 GM/DL (6.4-8.2)
[2022-08-08] MEDS: methylPREDNISolone 40 MG/ML (Solu-MEDROL) VIAL IV SCH ×2 (06:01→20:11)
[2022-08-08] MEDS: FUROSEMIDE 40 MG/4 ML INJ (LASIX) IV SCH (06:01)
[2022-08-08 08:16] VITALS: BP 129/81
--- NOTE | 2022-08-08 09:23 | Progress Note - Cardiology ---
Cardiology SOAP Progress Note Subjective: No cp or palp or syncope Shortness of breath is improving Weakness is present No focal weakness No n/v/d Objective: I&O/Vital Signs 08/07/22 08/07/22 08/08/22 08/08/22 22:59 23:42 01:00 02:16 Temp 36.4 Pulse 108 114 Resp 22 B/P (MAP) 128/93 (105) Pulse Ox 94 93 94 O2 Delivery OxyMask OxyMask OxyMask O2 Flow Rate 7.00 7.00 7.00 08/08/22 08/08/22 08/08/22 08/08/22 04:00 06:46 07:00 08:16 Temp 36.0 35.8 Pulse 110 106 98 Resp 19 16 B/P (MAP) 134/91 (105) 129/81 (97) Pulse Ox 90 98 98 O2 Delivery OxyMask OxyMask OxyMask O2 Flow Rate 8.00 7.00 7.00 7.00 08/08/22 00:00 Intake Total 1350 ml Output Total 2600 ml Balance -1250 ml Constitutional: AAO x 3, well-developed, other (thin, frail) Respiratory: No accessory muscle use, No respiratory distress; chest expansion is symmetric, chest is bilaterally symmetric, rhonchi (scattered ), other (coarse) Cardiovascular: regular rate-rhythm; No JVD Gastrointestional: soft, audible bowel sounds Extremities: no lower extremity edema bilateral Neurologic/Psychiatric: other (moves all limbs equally) Skin: No rash on exposed areas, No ulcerations on exposed areas Results/Procedures: Labs Laboratory Tests 08/08/22 04:33: White Blood Count 13.0H, Red Blood Count 4.61, Hemoglobin 14.3, Hematocrit 44, Mean Corpuscular Volume 96, Mean Corpuscular Hemoglobin 31, Mean Corpuscular Hemoglobin Concent 32, Red Cell Distribution Width 14.8H, Platelet Count 161, Mean Platelet Volume 12.0, Immature Granulocyte % (Auto) 1, Neutrophils (%) (Auto) 86H, Lymphocytes (%) (Auto) 4L, Monocytes (%) (Auto) 10, Eosinophils (%) (Auto) 0, Basophils (%) (Auto) 0, Neutrophils # (Auto) 11.2H, Lymphocytes # (Auto) 0.5L, Monocytes # (Auto) 1.2H, Eosinophils # (Auto) 0.0, Basophils # (Auto) 0.0, Immature Granulocyte # (Auto) 0.1, Sodium Level 139, Potassium Level 3.9, Chloride Level 93L, Carbon Dioxide Level 32, Anion Gap 14, Blood Urea Nitr ogen 36H, Creatinine 1.14, Estimat Glomerular Filtration Rate 71, BUN/Creatinine Ratio 32, Glucose Level 160H, Calcium Level 9.4, Corrected Calcium 10.0, Total Bilirubin 0.5, Aspartate Amino Transf (AST/SGOT) 36H, Alanine Aminotransferase (ALT/SGPT) 25, Alkaline Phosphatase 170H, Total Protein 6.3L, Albumin 3.2 Laboratory Tests 08/07/22 05:44 08/08/22 04:33 A/P: Assessment: Ac on chronic resp failure, multifactorial (see below) Severe, chronic, cor pulmonale and pulmonary HTN - RV pressure and vol overload and PASP 81 on echo of 05-21-[address] Giordano - RV pressure and vol overload and PASP 115-120 mmHg on ech of 08-06-22 Mild troponin elevation: likely Type 2 NV secondary to hypoxia and acute CHF Acute on chonric diastolic congestive heart failure - reports he has been on Lasix, but has been without it for the last month - Echo (05/21/2021) by Dr. Giordano: There is normal left ventricular chamber size with moderate septal hypertrophy. Normal left ventricular systolic function with an estimated ejection fraction of 60-65% with flattening of the intraventricular septum consistent with right ventricular pressure and/or volume overload. Doppler parameters are consistent with grade 1 diastolic dysfunction. The right ventricle is mildly dilated with normal function. TAPSE 1.7 cm. The right atrium is moderately dilated measuring 23 cm.The intra-atrial septum is bowed to the left consistent with elevated right atrial pressure. There is mild mitral regurgitation. There is moderate tricuspid regurgitation. The aortic root is mildly dilated at 3.9 cm. The estimated pulmonary artery systolic pressure is 81 mmHg assuming a right atrial pressure of 5 mmHg. - Echo on 08/07/22: Left ventricle: Moderate concentric hypertrophy. Systolic function is normal. The estimated ejection fraction is 60-65%. There were no regional wall motion abnormalities identified. Grade 2 diastolic dysfunction. RV cavity size is severely increased. Wall thickness is normal. There is right ventricular pressure and volume overload. Right atrium is severely dilated. Mild MR. Severe TR. PASP is in the range of 115 mm Hg to 120 mm Hg Hypertension - controlled Acute on chronic exacerbation of COPD - management per medical services Plan: * Complex management due to multiple comorbidities * We recommend that he gets a pulmonary work for his severe pulmonary hypertension that does not appear to be of cardiac origin. This is to be through his pcp for whom Dr Sawant is covering * Change Lasix to oral * Steroid are being managed by Dr Sawant * Monitor labs * He understands all of the above. Questions answered BIRD ANDREWS MD FACP FAC CCDS Aug 08, 2022 09:23
[2022-08-08] MEDS ORDERED: FUROSEMIDE 40 MG (LASIX) TAB PO NR (09:27)
[2022-08-08] MEDS: ASPIRIN 81 MG CHEW (CHILDREN'S ASA) PO SCH (09:53)
[2022-08-08] MEDS: DOCUSATE SODIUM 100 MG (COLACE) CAP PO SCH ×2 (09:54→20:17)
[2022-08-08] MEDS: SENNOSIDES 8.6 MG (SENOKOT) TAB PO SCH ×2 (09:54→20:17)
[2022-08-08] MEDS: NICOTINE PATCH REMOVAL TP SCH (09:55)
[2022-08-08] MEDS: NICOTINE 21 MG (NICODERM) PATCH TD SCH (09:55)
[2022-08-08 12:00] VITALS: BP 128/94
--- NOTE | 2022-08-08 12:21 | Progress Note - Hospitalist ---
KATYA SANDOVAL 08/08/22 1221: Subjective HPI/CC On Admission Denver Herrera (Mike) is a 67M with a past medical history of COPD, HTN, and HLD who presented to the ED on 08/05 with complaints of leg swelling, increased abdominal girth, and shortness of breath. This issue with swelling of his legs and shortness of breath has been ongoing for several years. He was put on lasix about one year ago after a stay at [facility]. He took his lasix as prescribed up until early June. After this point he did not refill the med. His swelling and shortness of breath have worsened since this time. He reports orthopnea and has to rest with an elevated head of the bed. His shortness of breath and leg swelling is made worse by walking. He reports he "cannot walk across the room without getting winded". He denies any chest pain but reports a fell/pressure sensation. He is on 3L by oxymask at my visit and says he requires anywhere from 3 to 5 liters at home. He has seen Dr. Giordano in the past but does not follow with a horse riding coach or instructor regularly. Subjective/Events-last exam Mr Herrera is seen sitting comfortably in his bed this morning. Oxymask in place sats in the upper 90s. He denies any chest pain, palpitations, or syncope. He says he feels less short of breath than yesterday and feels like his swelling is better. His feet are less erythematous than on exam yesterday. He had a brief run of SVT around 2200 on 08/07 that resolved spontaneously. He mentioned he woke up and felt anxious like his heart was racing but this sensation went away on its own very quickly. No other concerns according to patient. Cardiology discuss ed his need for outpatient follow up with a film or videotape editor for his severe pulm HTN. He is understanding of this. Review of Systems General: No Chills, No Night Sweats HEENT: No Head Aches Pulmonary: Dyspnea (improving, patient is able to ambulate room if he takes it slowly) Cardiovascular: Orthopnea; No: Chest Pain, Palpitations Gastrointestinal: No: Nausea, Abdominal Pain Genitourinary: No Dysuria; Frequency Neurological: Weakness; No: Confusion Objective Exam Vital Signs Vital Signs Date Time Temp Pulse Resp B/P (MAP) Pulse Ox O2 Delivery O2 Flow Rate FiO2 08/08/22 10:36 96 OxyMask 5.00 08/08/22 08:16 35.8 98 16 129/81 (97) Capillary Refill : General Appearance: No Apparent Distress, WD/WN HEENT: PERRL/EOMI, Moist Mucous Membranes Neck: Supple Respiratory: Chest Non Tender, No Accessory Muscle Use, Crackles (improved at the bases) Cardiovascular: Normal Peripheral Pulses (posterior tibial pulse is easier to palpate today with decreased swelling), Tachycardia (rate around 110) Gastrointestinal: Non Tender, Soft Rectal: Deferred Extremity: Normal Capillary Refill, Pedal Edema (improved) Neurologic/Psychiatric: Alert, Oriented x3, Normal Mood/Affect Skin: Erythema (bilateral feed. improved) Results/Procedures Lab Laboratory Tests 08/08/22 04:33 Patient resulted labs reviewed. Assessment/Plan Assessment and Plan Assess & Plan/Chief Complaint CHF exacerbation BNP significantly elevated. Cardiology consulted. Lasix switched to oral 80mg once per day by cards. Echocardiogram results ->Left ventricle: Moderate concentric hypertrophy. Systolic function is normal. The estimated ejection fraction is 60-65%. There were no regional wall motion abnormalities identified. Grade 2 diastolic dysfunction. RV cavity size is severely increased. Wall thickness is normal. There is right ventricular pressure and volume overload. Right atrium is severely dilated. Mild MR. Severe TR. PASP is in the range of 115 mm Hg to 120 mm Hg . Last echo in showed grade 1 diastolic dysfunction. ACEI and BB. Monitor vitals and electrolytes closely. Fluid and salt restriction Severe pulmonary HTN Echo showed pasp of 115-120. Will need evaluation by pulmonology after D/C. Patient understand the need for this appointment. HTN 134/91 this AM. On metoprolol. Continue to monitor COPD Continue montelukast and nebulized treatments. O2 sats have been good on same oxygen requirement the patient uses at home. CXR showed chronic COPD changes with no evidence of pna or effusion. Elevated troponins Troponins were .057 and .076 . Likely due to volume overload and CHF exacerbation. Aspirin given. Cardiology consulted, no cath or further procedures at this time. Nicotine Dependence Nicoderm patch in place DVT prophylaxis w lovenox Patient will likely be discharged over the weekend if vitals remain stable and swelling continues to improve on oral lasix. CARLI CANO DO 08/09/22 0702: Supervisory-Addendum Brief Verification & Attestation Participated in pt care: history, MDM, physical Personally performed: exam, history, MDM, supervision of care Care discussed with: Medical Student Procedures: n/a Results interpretation: Verified all documentation Verification and Attestation of Medical Student E/M Service A medical student performed and documented this service in my presence. I reviewed and verified all information documented by the medical student and made modifications to such information, when appropriate. I personally performed the physical exam and medical decision making. Carli Cano, Aug 09, 2022,07:02 KATYA SANDOVAL Aug 08, 2022 12:21 CARLI CANO DO Aug 09, 2022 07:02
[2022-08-08 16:00] VITALS: BP 140/93
[2022-08-08] MEDS: ENOXAPARIN 40 MG/0.4 ML (LOVENOX) SYR SC SCH (18:22)
[2022-08-08 20:00] VITALS: BP 135/95
[2022-08-08] MEDS: MONTELUKAST 10 MG (SINGULAIR) TAB PO SCH (20:11)
[2022-08-08 23:38] VITALS: BP 124/85
[2022-08-08] MEDS ORDERED: RT-IPRATROPIUM (ATROVENT) 0.5MG/2.5ML AMP IH PRN (23:45)
[2022-08-09] VITALS: BP 159/109
[2022-08-09 04:00] VITALS: BP 145/100
[2022-08-09 04:53] LABS: BASOPHILS % (AUTO) 0 % (0-10); EOSINOPHILS % (AUTO) 0 % (0-10); HEMATOCRIT 47 % (40-54); LYMPHOCYTES # (AUTO) 0.4 10^3/uL (1.0-4.0); LYMPHOCYTES % (AUTO) 4 % (12-44); MEAN CORPUSCULAR HEMOGLOBIN 31 pg (25-34); MEAN CORPUSCULAR HGB CONC 32 g/dL (32-36); MEAN CORPUSCULAR VOLUME 98 fL (80-99); MEAN PLATELET VOLUME 11.5 fL (9.0-12.2); MONOCYTES % (AUTO) 9 % (0-12); NEUTROPHILS # (AUTO) 9.5 10^3/uL (1.8-7.8); NEUTROPHILS % (AUTO) 87 % (42-75); PLATELET COUNT 155 10^3/uL (130-400); WHITE BLOOD COUNT 10.9 10^3/uL (4.3-11.0)
[2022-08-09 05:06] LABS: ALBUMIN 3.3 GM/DL (3.2-4.5); POTASSIUM 4.3 MMOL/L (3.6-5.0)
[2022-08-09 05:07] LABS: CALCIUM 10.4 MG/DL (8.5-10.1)
[2022-08-09 05:08] LABS: TOTAL PROTEIN 6.3 GM/DL (6.4-8.2)
[2022-08-09 05:10] LABS: BILIRUBIN,TOTAL 0.7 MG/DL (0.1-1.0)
[2022-08-09 05:12] LABS: CREATININE SERUM 0.95 MG/DL (0.60-1.30)
[2022-08-09 07:21] VITALS: BP_SYST 158; BP_SYST 162; BP_DIAS 106; BP_DIAS 116
[2022-08-09] MEDS: RT-IPRATROPIUM (ATROVENT) 0.5MG/2.5ML AMP IH SCH ×2 (07:51→11:01)
[2022-08-09] MEDS: RT-ALBUTEROL SULF 2.5 MG/3 ML PRE-MIX VIAL INH SCH ×2 (07:51→11:01)
[2022-08-09] MEDS ORDERED: FUROSEMIDE 40 MG (LASIX) TAB PO SCH (09:00)
[2022-08-09] MEDS: SENNOSIDES 8.6 MG (SENOKOT) TAB PO SCH (09:15)
[2022-08-09] MEDS: ASPIRIN 81 MG CHEW (CHILDREN'S ASA) PO SCH (09:15)
[2022-08-09] MEDS: DOCUSATE SODIUM 100 MG (COLACE) CAP PO SCH (09:15)
[2022-08-09] MEDS: NICOTINE 21 MG (NICODERM) PATCH TD SCH (09:16)
[2022-08-09] MEDS: methylPREDNISolone 40 MG/ML (Solu-MEDROL) VIAL IV SCH (09:16)
[2022-08-09] MEDS: NICOTINE PATCH REMOVAL TP SCH (09:17)
--- NOTE | 2022-08-09 10:48 | Progress Note - Cardiology ---
Cardiology SOAP Progress Note Subjective: Shortness of breath better No cp or palp or syncope No n/v/d Gen weakness No focal weakness Anxious about going home Objective: I&O/Vital Signs 08/08/22 08/08/22 08/08/22 08/09/22 23:30 23:34 23:38 00:00 Temp 36.7 Pulse 111 112 Resp 20 B/P (MAP) 159/109 (126) Pulse Ox 93 94 93 94 O2 Delivery OxyMask OxyMask OxyMask O2 Flow Rate 3.00 3.00 7.00 FiO2 32 08/09/22 08/09/22 08/09/22 08/09/22 01:00 04:00 04:00 07:00 Temp 36.0 Pulse 109 105 110 Resp 18 B/P (MAP) 145/100 (115) Pulse Ox 98 O2 Delivery OxyMask O2 Flow Rate 7.00 08/09/22 08/09/22 08/09/22 07:21 07:53 08:00 Temp 36.7 Pulse 110 Resp 18 B/P (MAP) 162/106 (124) Pulse Ox 96 97 92 O2 Delivery OxyMask OxyMask OxyMask O2 Flow Rate 5.00 3.00 5.00 08/09/22 00:00 Intake Total 1795 ml Output Total 3800 ml Balance -2005 ml Constitutional: AAO x 3, well-developed, other (thin, frail) Respiratory: No accessory muscle use, No respiratory distress; chest expansion is symmetric, chest is bilaterally symmetric, rhonchi (scattered ), other (coarse) Cardiovascular: regular rate-rhythm; No JVD Gastrointestional: soft, audible bowel sounds Extremities: no lower extremity edema bilateral Neurologic/Psychiatric: other (moves all limbs equally) Skin: No rash on exposed areas, No ulcerations on exposed areas Results/Procedures: Labs Laboratory Tests 08/09/22 04:45: White Blood Count 10.9, Red Blood Count 4.82, Hemoglobin 15.0, Hematocrit 47, Mean Corpuscular Volume 98, Mean Corpuscular Hemoglobin 31, Mean Corpuscular Hemoglobin Concent 32, Red Cell Distribution Width 14.9H, Platelet Count 155, Mean Platelet Volume 11.5, Immature Granulocyte % (Auto) 0, Neutrophils (%) (Auto) 87H, Lymphocytes (%) (Auto) 4L, Monocytes (%) (Auto) 9, Eosinophils (%) (Auto) 0, Basophils (%) (Auto) 0, Neutrophils # (Auto) 9.5H, Lymphocytes # (Auto ) 0.4L, Monocytes # (Auto) 1.0, Eosinophils # (Auto) 0.0, Basophils # (Auto) 0.0, Immature Granulocyte # (Auto) 0.0, Sodium Level 139, Potassium Level 4.3, Chloride Level 91L, Carbon Dioxide Level 37H, Anion Gap 11, Blood Urea Nitrogen 35H, Creatinine 0.95, Estimat Glomerular Filtration Rate 88, BUN/Creatinine Ratio 37, Glucose Level 140H, Calcium Level 10.4H, Corrected Calcium 11.0H, Total Bilirubin 0.7, Aspartate Amino Transf (AST/SGOT) 48H, Alanine Aminotransferase (ALT/SGPT) 39, Alkaline Phosphatase 160H, Total Protein 6.3L, Albumin 3.3 Laboratory Tests 08/08/22 04:33 08/09/22 04:45 A/P: Assessment: Ac on chronic resp failure, multifactorial (see below) Severe, chronic, cor pulmonale and pulmonary HTN - RV pressure and vol overload and PASP 81 on echo of 05-21-[address] Giordano - RV pressure and vol overload and PASP 115-120 mmHg on ech of 08-06-22 Mild troponin elevation: likely Type 2 OH secondary to hypoxia and acute CHF Acute on chonric diastolic congestive heart failure - reports he has been on Lasix, but has been without it for the last month - Echo (05/21/2021) by Dr. Giordano: There is normal left ventricular chamber size with moderate septal hypertrophy. Normal left ventricular systolic function with an estimated ejection fraction of 60-65% with flattening of the intraventricular septum consistent with right ventricular pressure and/or volume overload. Doppler parameters are consistent with grade 1 diastolic dysfunction. The right ventricle is mildly dilated with normal function. TAPSE 1.7 cm. The right atrium is moderately dilated measuring 23 cm.The intra-atrial septum is bowed to the left consistent with elevated right atrial pressure. There is mild mitral regurgitation. There is moderate tricuspid regurgitation. The aortic root is mildly dilated at 3.9 cm. The estimated pulmonary artery systolic pressure is 81 mmHg assuming a right atrial pressure of 5 mmHg. - Echo on 08/07/22: Left ventricle: Moderate concentric hypertrophy. Systolic function is normal. The estimated ejection fraction is 60-65%. There were no regional wall motion abnormalities identified. Grade 2 diastolic dysfunction. RV cavity size is severely increased. Wall thickness is normal. There is right ventricular pressure and volume overload. Right atrium is severely dilated. Mild MR. Severe TR. PASP is in the range of 115 mm Hg to 120 mm Hg Hypertension - controlled Acute on chronic exacerbation of COPD - management per medical services Plan: * Complex management due to multiple comorbidities * We recommend that he gets a pulmonary work for his severe pulmonary hypertension that does not appear to be of cardiac origin. This is to be through his pcp for whom Dr Sawant is covering * Lasix changed to oral * Steroid are being managed by Dr Sawant * Monitor labs * He understands all of the above. Questions answered. Outpatient cardiac f/u advised BIRD ANDREWS MD FACP FAC CCDS Aug 09, 2022 10:48
[2022-08-09 11:11] VITALS: BP 134/96
[2022-08-09] MEDS ORDERED: ASPI81TA64 PO (11:56)
[2022-08-09] MEDS ORDERED: MONT-40 PO (11:56)
[2022-08-09] MEDS ORDERED: PRED10TA22 PO (11:56)
[2022-08-09] MEDS ORDERED: FURO40TA4 PO (11:56)
[2022-08-09] MEDS ORDERED: MTP25TSR PO (11:56)
--- NOTE | 2022-08-09 11:57 | Discharge Summary ---
Discharge Summary Hospital Course Was the Problem List Reviewed?: Yes Problems/Dx: (1) CHF exacerbation Status: Acute Qualifiers: Qualified Codes: I50.9 - Heart failure, unspecified (2) NSTEMI (non-ST elevated myocardial infarction) Status: Acute (3) Chronic respiratory failure Status: Acute Qualifiers: Qualified Codes: J96.11 - Chronic respiratory failure with hypoxia (4) Hypertension Status: Acute (5) Lower extremity edema Status: Acute (6) Fluid overload Status: Acute Hospital Course Date of Admission: Aug 08, 2022 at 09:47 Admission Diagnosis : Family Physician/Provider: [place] Date of Discharge: 08/09/22 Discharge Diagnosis: [ ] Hospital Course: Uneventful but lengthy course after patient was admitted from ER with AECHF and elevated troponin. Cardiology consulted. IV Lasix resolved the volume overload. O2 maintained on Oxymask his entire course and patient return to his baseline oxygen supplement amount. ASA maintained. Follow up closely next week was recommended. Labs and Pending Lab Test: Laboratory Tests 08/09/22 04:45: White Blood Count 10.9, Red Blood Count 4.82, Hemoglobin 15.0, Hematocrit 47, Mean Corpuscular Volume 98, Mean Corpuscular Hemoglobin 31, Mean Corpuscular Hemoglobin Concent 32, Red Cell Distribution Width 14.9H, Platelet Count 155, Mean Platelet Volume 11.5, Immature Granulocyte % (Auto) 0, Neutrophils (%) (Auto) 87H, Lymphocytes (%) (Auto) 4L, Monocytes (%) (Auto) 9, Eosinophils (%) (Auto) 0, Basophils (%) (Auto) 0, Neutrophils # (Auto) 9.5H, Lymphocytes # (Auto) 0.4L, Monocytes # (Auto) 1.0, Eosinophils # (Auto) 0.0, Basophils # (Auto) 0.0, Immature Granulocyte # (Auto) 0.0, Sodium Level 139, Potassium Level 4.3, Chloride Level 91L, Carbon Dioxide Level 37H, Anion Gap 11, Blood Urea Nitrogen 35H, Creatinine 0.95, Estimat Glomerular Filtration Rate 88, BUN/Creatinine Ratio 37, Glucose Level 140H, Calcium Level 10.4H, Corrected Calcium 11.0H, Total Bilirubin 0.7, Aspartate Amino Transf (AST/SGOT) 48H, Alanine Aminotransferase (ALT/SGPT) 39, Alkaline Phosphatase 160H, Total Protein 6.3L, Albumin 3.3 Home Meds Active Prednisone 10 Mg Tab.ds.pk 10 Mg PO DAILY Take 6 tabs(60mg)daily,decrease by 1 tab(10MG)daily. Montelukast Sodium 10 Mg Tablet 10 Mg PO HS Furosemide 40 Mg Tablet 80 Mg PO DAILY Children's Aspirin (Aspirin) 81 Mg Tab.chew 81 Mg PO DAILY@0900 Metoprolol Succinate 25 Mg Tab.er.24h 25 Mg PO DAILY Reported Incruse Ellipta (Umeclidinium [place]) 62.5 Mcg/Actuation Blst.w.dev 1 Puff IH DAILY Symbicort 80-4.5 Mcg Inhaler (Budesonide/Formoterol Fumarate) 80 Mcg-4.5 Mcg/Actuation Hfa.aer.ad 2 Puff IH BID Atorvastatin Calcium 20 Mg Tablet 20 Mg PO DAILY Lisinopril 5 Mg Tablet 5 Mg PO DAILY Assessment/Pt Instructions PCP 1 week Discharge Planning: <30 minutes discharge planning Discharge Instructions Discharge Diet: No Restrictions Discharge Physical Examination Vital Signs Vital Signs Date Time Temp Pulse Resp B/P (MAP) Pulse Ox O2 Delivery O2 Flow Rate FiO2 08/09/22 11:11 36.3 103 18 134/96 (109) 92 Nasal Cannula 3.00 08/08/22 23:38 32 General Appearance: No Apparent Distress, WD/WN, Chronically ill Respiratory: Lungs Clear, Normal Breath Sounds Cardiovascular: Regular Rate, Rhythm Neurologic/Psychiatric: Alert, Oriented x3, No Motor/Sensory Deficits, Normal Mood/Affect Allergies: Coded Allergies: No Known Drug Allergies (Unverified , 08/05/22) Discharge Summary Date of Admission Aug 08, 2022 at 09:47 Date of Discharge Discharge Date: Aug 09, 2022 Admission Diagnosis Assessment: AECHF NSTEMI Smoker Acute on chronic acute respiratory failure AECOPD Plan: Monitor closely O2 IV steroids IV Lasix Cardiology Discharge Diagnosis KAISER CANO DO Aug 09, 2022 11:57
[2022-08-09 15:15] VITALS: BP 134/96
== END 2022-08-09 15:15 | disposition home health service (06) | DRG 280 ==
LOC: EDUNIT# 16:09 → ER 16:10 → CSD 17:54 → OBSVTOIN 08-08 09:47
PROVIDERS: ADMIT Internal Medicine; ATTEND Internal Medicine
DX: I11.0 Hypertensive heart disease with heart failure (principal); I50.33 Acute on chronic diastolic (congestive) heart failure; I21.A1 Myocardial infarction type 2; J96.11 Chronic respiratory failure with hypoxia; J44.1 Chronic obstructive pulmonary disease with (acute) exacerbation; Z99.81 Dependence on supplemental oxygen; I08.1 Rheumatic disorders of both mitral and tricuspid valves; E78.5 Hyperlipidemia, unspecified; F17.210 Nicotine dependence, cigarettes, uncomplicated; I27.29 Other secondary pulmonary hypertension; Z86.711 Personal history of pulmonary embolism; Z86.718 Personal history of other venous thrombosis and embolism
CPT/HCPCS: 36415; 71045; 80053; 80061; 83036; 83690; 83735; 83880; 84484; 85007; 85025; 85027; 85610; 85730; 93005; 93041; 93306; 94640; 94760

== ENCOUNTER 2022-12-24 05:52 | Outpatient (CLI) | payer MEDICARE, MEDICAID ==
[~2022-12-24] VITALS: Ht 182.8 cm; Wt 60.9 kg
[~2022-12-24 05:52] MED LIST changes: +ASPI81TA64 PO; +ATOR20TA66 PO; +BUDE10.22 IH; +FURO40TA4 PO; +MONT-40 PO; +MTP25TSR PO; +PRED10TA22 PO; +UMEC62.5 IH
[2022-12-24] MEDS ORDERED: FURO-124 PO (14:29)
[2022-12-24] MEDS ORDERED: FLUT1AER IH (14:30)
[2022-12-24] MEDS ORDERED: RT-ALBUINH INH (14:30)
== END 2022-12-24 14:35 | disposition home or self-care (01) ==
LOC: PREOP 05:52
PROVIDERS: ATTEND Specialist
DX: Z01.818 Encounter for other preprocedural examination (principal); H25.12 Age-related nuclear cataract, left eye

== ENCOUNTER 2023-01-02 09:55 | Day surgery (SDC) | payer MEDICARE, MEDICAID ==
[~2023-01-02] VITALS: Ht 182.8 cm; Wt 60.9 kg
[~2023-01-02 09:55] MED LIST changes: +FLUT1AER IH; +FURO-124 PO; +RT-ALBUINH INH
[2023-01-02] MEDS ORDERED: MIDAZOLAM 2 MG/2 ML (VERSED) VIAL ONE (10:10)
[2023-01-02] MEDS ORDERED: TIMOLOL 0.5% (CATARACTS) 0.3 ML BTL OU PRN (10:15)
[2023-01-02] MEDS ORDERED: POVIDONE (BETADINE) OPHTH SOLN 5% 30 ML OP ONE (10:15)
[2023-01-02] MEDS ORDERED: MOXIFLOXACIN OPHTH SOLN 5 MG/ML 0.3 ML SYRINGE OP ONE (10:15)
[2023-01-02] MEDS: TETRACAINE 0.5% OPHTH SOLN 4 ML BTL (SINGLE DOSE ONLY) OU PRN ×4 (10:51→11:08)
[2023-01-02 10:55] VITALS: BP 128/71
[2023-01-02] MEDS: PHENYLEPHRINE 10% OPHTH (NEO-SYN) 5 ML BTL OU SCH ×3 (10:58→11:08)
[2023-01-02] MEDS: TROPICAMIDE 1% OPH SOLN (MYDRIACYL) 15 ML BTL OP SCH ×3 (10:58→11:08)
--- NOTE | 2023-01-02 11:26 | Ophthalmologist Pre-Op Note ---
Pre-Operative Progress Note H&P Reviewed The H&P was reviewed, patient examined and no changes noted. Date H&P Reviewed: Jan 02, 2023 Time H&P Reviewed: 11:26 Pre-Op Dx Cataract, Left Eye REJI BEYER MD Jan 02, 2023 11:26
--- NOTE | 2023-01-02 11:50 | Ophthalmology Operative Report ---
Cataract removal/placement IOL PREOPERATIVE DIAGNOSIS: 1. Mature Cataract Left Eye 2. Stain the anterior capsule with Vision Blue. POSTOPERATIVE DIAGNOSIS: 1. Mature Cataract Left Eye 2. Stain the anterior capsule with Vision Blue. PROCEDURE: 1. Cataract removal and placement of posterior chamber implant, left eye. 2. Stain the anterior capsule with Vision Blue. SURGEON: Rosalino Beyer ANESTHESIA: Topical with sedation COMPLICATIONS: None ESTIMATED BLOOD LOSS: Minimal DESCRIPTION OF PROCEDURE: After proper informed consent was obtained, the patient, 67 male ,was taken to the Operating Room and the left eye was anesthetized with tetracaine. The left eye was then prepped and draped in the usual manner. A wire lid speculum was placed. A paracentesis was made at the left hand position. Preservative free lidocaine was injected into anterior chamber followed by viscoelastic. A clear corneal incision was made in the temporal position. A capsulorrhexis was performed and the central nuclear and cortical material were removed. Vision blue was used to visualize capsule. The posterior capsule was polished and Eric [id number] IOL was placed into the capsular bag. The residual visc oelastic was aspirated and balanced saline solution was injected into the anterior chamber. Moxifloxacin was injected into the anterior chamber. The wound was checked and found to be water tight. The patient tolerated the procedure well without complications. ROSALINO BEYER MD Jan 02, 2023 11:50
[2023-01-02 11:59] VITALS: BP 102/64
[2023-01-02] MEDS ORDERED: acetaZOLAMIDE ER 500 MG CAP (DIAMOX SEQUELS) PO ONE (13:15)
--- NOTE | 2023-01-02 15:02 | Anesthesia-General Post-Op ---
MAC Patient Condition Mental Status/LOC: Same as Preop Cardiovascular: Satisfactory Nausea/Vomiting: Absent Respiratory: Satisfactory Pain: Controlled Complications: Absent Post Op Complications Complications None Follow Up Care/Instructions Patient Instructions None needed. Anesthesiology Discharge Order Discharge Order Patient was doing well after the procedure with no complaints, stable vital signs, no apparent adverse anesthesia problems. No complications reported per nursing. RITA BRUNO DO Jan 02, 2023 15:02
== END 2023-01-02 12:00 | disposition home or self-care (01) ==
LOC: SDC 09:55
PROVIDERS: ATTEND Specialist
DX: H25.89 Other age-related cataract (principal); J44.9 Chronic obstructive pulmonary disease, unspecified; Z87.891 Personal history of nicotine dependence
CPT/HCPCS: 66984; V2632

== ENCOUNTER 2023-01-14 06:53 | Outpatient (CLI) | payer MEDICARE, MEDICAID ==
[~2023-01-14] VITALS: Ht 185.5 cm; Wt 60.9 kg
[~2023-01-14 06:53] MED LIST changes: -POTA10CA44 PO; +POTA10CA84 PO
== END 2023-01-14 10:29 ==
LOC: PREOP 06:53
PROVIDERS: ATTEND Specialist
DX: Z01.818 Encounter for other preprocedural examination (principal)